=== PATIENT | male | born 1975 | race Caucasian/White ===

== ENCOUNTER 2017-06-11 18:11 | Observation (INO) | payer OTHER ==
[2017-06-11] MEDS ORDERED: Sodium Chloride 0.9% 2.5 ML Syringe FLUSH PRN (18:27)
[2017-06-11] MEDS ORDERED: Sodium Chloride 0.9% 10 ML Syringe FLUSH PRN (18:27)
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
[2017-06-11] MEDS ORDERED: Sodium Chloride 0.9% 1,000 ML IV ONE (18:40)
[2017-06-11 18:59] LABS: CHLORIDE,CL 105 mmol/L (98-110); SODIUM,NA 142 mmol/L (136-146)
[2017-06-11] MEDS ORDERED: Potassium Chloride 20 MEQ Tab.ER PO ONE (21:15)
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
[2017-06-12 08:07] LABS: CHLORIDE,CL 107 mmol/L (98-110); SODIUM,NA 144 mmol/L (136-146)
--- NOTE | 2017-06-12 09:04 | PCM.PN ---
Addendum entered and electronically signed by Gabbi Madera NP 06/12/17 16:13 : Will order ECHO and A1c as well. Will order PT to evaluate gait instability and ataxia. ST is not needed no swallowing or speech concerns observed, no facial droop. OT is not needed, able to perform ADLs without significant deficits. Original Note: - General Info Date of Service: 06/12/17 Admission Dx/Problem (Free Text): Admission Diagnosis/Problem Admission Diagnosis/Problem Paresthesia Subjective Update: Doing about the same this morning, still feels weak on the R side and like he has weakened fine motor control. Denies chest pain, SOB or headache. No further blurred vision or vision complaints. Functional Status: Reports: Pain Controlled, Tolerating Diet, Ambulating, Urinating - Review of Systems General: Reports: No Symptoms. Denies: Fever HEENT: Reports: No Symptoms. Denies: Ear Pain, Eye Pain, Headaches, Sore Throat , Visual Changes Pulmonary: Reports: No Symptoms. Denies: Shortness of Breath, Cough, Sputum Cardiovascular: Reports: No Symptoms. Denies: Chest Pain, Palpitations, Edema Gastrointestinal: Reports: No Symptoms. Denies: Abdominal Pain, Nausea, Vomiting Skin: Reports: No Symptoms Neurological: Reports: Weakness (perceived to R arm and leg), Gait Disturbance ( R leg feels heavy, like he is dragging ). Denies: Dizziness, Headache, Trouble Speaking, Change in Speech Psychiatric: Denies: Confusion - Patient Data Vitals - Most Recent: Last Vital Signs Temp 97.9 F 06/12/17 08:48 Pulse 68 06/12/17 08:48 Resp 12 06/12/17 08:48 BP 166/106 H 06/12/17 08:48 Pulse Ox 96 06/12/17 08:48 Weight - Most Recent: 110 kg I&O - Last 24 Hours: Intake & Output 06/11/17 06/12/17 06/12/17 22:59 06:59 14:59 Intake Total 1150 Output Total 700 Balance 450 Lab Results Last 24 Hours: Laboratory Results - last 24 hr 06/12/17 06/12/17 06/12/17 Range/Units 05:16 05:16 05:16 Sodium 144 (136-146) mmol/L Potassium 4.0 (3.5-5.1) mmol/L Chloride 107 (98-110) mmol/L Carbon Dioxide 25 (21-31) mmol/L BUN 16 (6.0-23.0) mg/dL Creatinine 0.8 (0.6-1.5) mg/dL Est Cr Clr Drug Dosing 125.47 mL/min Estimated GFR (MDRD) > 60.0 ml/min Glucose 98 (60-110) mg/dL Hemoglobin A1c 5.3 (0.0-6.0) % Calcium 9.2 (8.8-10.8) mg/dL Magnesium 1.7 (1.5-2.3) mEq/L Triglycerides 131 (10-190) mg/dL Cholesterol 206 (131-240) mg/dL LDL Cholesterol, Calc 155 (60-180) mg/dL VLDL Cholesterol 26 (5-55) mg/dL HDL Cholesterol 25 L (40-80) mg/dL Cholesterol/HDL Ratio 8.2 H (3.3-6.0) Med Orders - Current: Current Medications Aspirin (Aspirin) 325 mg PO DAILY BRIJESH Atorvastatin Calcium (Lipitor) 80 mg PO ONETIME ONE Stop: 06/12/17 08:49 Atorvastatin Calcium (Lipitor) 80 mg PO BEDTIME BRIJESH Sodium Chloride (Saline Flush) 10 ml FLUSH ASDIRECTED PRN PRN Reason: Keep Vein Open Last Admin: 06/11/17 19:30 Dose: 10 ml Sodium Chloride (Saline Flush) 2.5 ml FLUSH ASDIRECTED PRN PRN Reason: Keep Vein Open Last Admin: 06/11/17 19:29 Dose: 2.5 ml Discontinued Medications Sodium Chloride (Normal Saline) 1,000 mls @ 999 mls/hr IV STAT ONE Stop: 06/11/17 19:40 Last Admin: 06/11/17 19:26 Dose: 999 mls/hr Potassium Chloride (Klor-Con M20) 40 meq PO ONETIME ONE Stop: 06/11/17 21:16 Last Admin: 06/11/17 22:00 Dose: 40 meq - Exam General: Alert, Oriented, Cooperative, No Acute Distress Neck: Supple Lungs: Clear to Auscultation, Normal Respiratory Effort Cardiovascular: Regular Rate, Regular Rhythm, No Murmurs. No: Irregular Rhythm GI/Abdominal Exam: Normal Bowel Sounds, Soft, Non-Tender, No Organomegaly, No Distention, No Abnormal Bruit, No Mass, Pelvis Stable Extremities: Normal Inspection, Normal Range of Motion, Non-Tender, No Pedal Edema, Normal Capillary Refill Neurological: Normal Tone, Strength Equal Bilateral, Cranial Nerves Intact, Other (continues to complain of heaviness to R leg and arm. Leg feels heavy when ambulating, R arm strength is less as well, picks up kleenex box and states "this is seems very heavy to me, when I know it shouldn't feel this heavy.") Psy/Mental Status: Alert, Normal Affect, Normal Mood - Problem List & Annotations (1) Paresthesia SNOMED Code(s): 12067560 Code(s): R20.2 - PARESTHESIA OF SKIN Status: Acute Current Visit: Yes - Problem List Review Problem List Initiated/Reviewed/Updated: Yes - My Orders Last 24 Hours: My Active Orders 06/12/17 08:48 atorvaSTATin [Lipitor] 80 mg PO ONETIME ONE 06/12/17 08:54 Cervical Spine Comp w wo Cont [MR] Routine 06/12/17 09:00 Aspirin 325 mg PO DAILY 06/13/17 21:00 atorvaSTATin [Lipitor] 80 mg PO BEDTIME - Plan Plan:: 41 yo male admitted with right sided paresthesia. 1. R sided parasthesia: Brain MRI and Neck MRA ordered. Consulted Dr. Tena , she will see him this afternoon and requested a MRI of C spine as well. Telemetry has been SR with no irregular rhythm noted. Permissive HTN at this time until after MRI, BP 150-180/100s. Cholesterol elevated will give Atorvastatin 80 mg and ASA 325 daily. Continue to monitor. VTE prophylaxis: Lovenox. Dispo: 1-2 days
[2017-06-12] MEDS ORDERED: atorvaSTATin 40 MG Tab PO ONE (09:05)
[2017-06-12] MEDS: Aspirin 325 MG Tab PO SCH (09:23)
[2017-06-12] MEDS ORDERED: Gadobenate Dimeglumine 529 MG/ML 20 ML SDV IVPUSH STA (10:35)
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
--- NOTE | 2017-06-12 15:46 | MR ---
EXAMINATION: MRI of the brain with and without contrast. TECHNIQUE: Multiplanar and multisequence imaging of the brain without and following 20 cc of Multiha nce contrast. HISTORY: PA. FINDINGS: Cerebral hemispheres and the deep nuclei are without hemorrhage, mass, edema, enhancement or atrophy . There is a small left basal ganglia/periventricular area of diffusion restriction identified. Ther e are multiple periventricular and subcortical white matter FLAIR signal abnormalities. If you have t hese appear open ended, however are CSF intensity centrally. Otherwise no abnormal diffusion restrict ion. No focal abnormal enhancement. No extraaxial collections or hemorrhage. Ventricular system is of normal size and configuration witho ut hydrocephalus. A few tiny T2 bright signal foci are noted within the midbrain and cerebellum. Carotid basilar artery flow voids are intact. The otomastoid airspaces are clear. No internal audito ry canal or cerebellopontine angle masses or enhancement. The paranasal sinuses are clear. The glob es, optic nerves, orbital apices, optic chiasm, optic tracts, and visual cortices are unremarkable. There is a tiny 2 mm cyst within the pituitary. No meningeal enhancement. The craniocervical junction is unremarkable. No siderosis or evidence of vascular malformation. The calvarium is intact. IMPRESSION: 1. Small acute left basal ganglia/periventricular coronary infarct. 2. Multiple periventricular and subcortical white matter FLAIR intensities. These likely represent a combination of small vessel ischemic changes or lacunar infarcts, however given the appearance of a d emyelinating process such as MS is not excluded.
--- NOTE | 2017-06-12 15:48 | MR ---
EXAMINATION: MRI cervical spine with and without contrast HISTORY: Right arm weakness COMPARISON: None TECHNIQUE: Multiplanar and multisequence imaging obtained of the cervical spine before and following the administration of 20 mL of MultiHance. FINDINGS: The cervical spinal alignment appears grossly normal. The vertebral body heights appear wel l maintained. There is no abnormal bone marrow signal. The cervical spinal cord signal is normal. No abnormal enhancement is demonstrated. There is no significant disc bulge, spinal canal stenosis, or n eural foraminal stenosis identified. The paravertebral soft tissues appear grossly unremarkable. Plea se see the MRI brain report for intracranial findings. IMPRESSION: Grossly unremarkable MRI of the cervical spine with and without contrast.
[2017-06-12] MEDS ORDERED: Acetaminophen 325 MG Tab PO PRN (16:04)
--- NOTE | 2017-06-12 16:29 | MR ---
EXAMINATION: MRA neck without contrast HISTORY: TIA COMPARISON: None TECHNIQUE: Axial [id number] imaging obtained through the neck and skull base without contrast. M IP Reconstructions obtained. FINDINGS: The right vertebral artery is diminutive in size and not well characterized. The left verte bral artery is dominant. No significant atheromatous narrowing noted within the internal or common ca rotid arteries. The origins of the great vessels are not well characterized. The proximal middle and anterior cerebral arteries appear normal. The posterior cerebral arteries are grossly unremarkable. The anterior and posterior communicating arteries are normal. No aneurysm iden tified. IMPRESSION: 1. The right vertebral artery is diminutive not well characterized. 2. The carotid arteries appear normal.
--- NOTE | 2017-06-12 18:46 | CT ---
EXAM DATE: 06/11/17 PATIENT'S AGE: 41 Patient: CLARENCE ODELL Facility: [facility], [place], [place] Site . Site : 1975 Study: CT Head [id number]/4/2017 6:52:24 PM Ordering Physician: Doctor Zhou Final Report: INDICATION: Weakness. TECHNIQUE: Scanning of the head was performed without IV contrast material. Coronal and sagittal reconstructions were obtained. COMPARISON: None. FINDINGS: No acute hemorrhage or mass effect is demonstrated. Several punctate foci of decreased attenuation are demonstrated in both centrum semiovale, both nino radiata, the left internal capsule anterior limb and the right paramedian hannah. Differentiation between the preciado matter and white matter is preserved. The ventricles and other subarachnoid spaces are within normal limits. No calvarial abnormality is evident. The visualized paranasal and mastoid sinuses are clear. IMPRESSION: Nonspecific punctate foci of decreased attenuation in both centrum semiovale, both nino radiata, the left internal capsule anterior limb and the right paramedian hannah. Consider demyelination and microvascular ischemia. MRI is suggested. Please note that all CT scans at this facility use dose modulation, iterative reconstruction, and/or weight-based dosing when appropriate to reduce radiation dose to as low as reasonably achievable. Dictated by Louie Groves MD @ Jun 11 2017 7:16PM (Electronic Signature) Report Signed by Proxy. [facility]
--- NOTE | 2017-06-12 18:47 | CR ---
EXAM DATE: 06/11/17 PATIENT'S AGE: 41 Patient: CLARENCE ODELL Facility: [place], [place] Site . Site : 1975 Study: XRay Chest [id number]/4/2017 6:54:30 PM Ordering Physician: Doctor Zhou Final Report: INDICATION: weakness TECHNIQUE: Chest 1 view. Overlying body piercing degrades evaluation of the left clarence thorax. COMPARISON: None FINDINGS: Cardiovascular and mediastinum: Heart size and vasculature are normal in caliber and appearance. Mediastinum is within normal limits. Lungs and pleural space: No focal consolidation. No sign of pleural effusion. No pneumothorax. Bones and soft tissues: No significant findings. IMPRESSION: No acute cardiopulmonary disease. Dictated by Glenn Canseco MD @ 06/11/2017 7:20:23 PM Dictated by: Glenn Canseco MD @ 06/11/2017 19:20:32 (Electronic Signature) Report Signed by Proxy. [facility]
[2017-06-13] MEDS: Aspirin 325 MG Tab PO SCH (08:34)
[2017-06-13] MEDS ORDERED: Lisinopril 10 MG Tab PO SCH (11:15)
--- NOTE | 2017-06-13 11:21 | PCM.DCSUM1 ---
Discharge Summary - Hospital Course Brief History: 41 yo male who presents right sided paresthesia. The day before admission at around 5:00 pm while driving his four boyd he started to feel weird on his right side. He reports loosing fine motor control of his hand. He reported numbness of his hand, arms and legs. He feels as though his right arm and leg is heavy and he is draging his leg when he walks. He was evaluated in the ED and he had a normal neuro exam. He had a CT head which reported nonspecific punctate foci of decreased attenuation in both central semioval both nino radiata, the left internal capsule anterior lumb and the right paramedian hannah. - Discharge Data Discharge Date: 06/13/17 Discharge Disposition: Home, Self-Care 01 Condition: Good - Discharge Diagnosis/Problem(s) (1) CVA (cerebral vascular accident) SNOMED Code(s): 057607662 ICD Code: I63.9 - CEREBRAL INFARCTION, UNSPECIFIED Status: Acute Qualifiers: Laterality of affected vessel: left (2) Paresthesia SNOMED Code(s): 53184088 ICD Code: R20.2 - PARESTHESIA OF SKIN Status: Acute (3) HTN (hypertension) SNOMED Code(s): 22931923 ICD Code: I10 - ESSENTIAL (PRIMARY) HYPERTENSION Status: Acute (4) Dyslipidemia SNOMED Code(s): 683411807 ICD Code: E78.5 - HYPERLIPIDEMIA, UNSPECIFIED Status: Acute - Patient Summary/Data Consults: Consultations 06/12/17 12:35 Consult to Physician [CONS] Routine 06/12/17 16:12 Consult to Physical Therapy [PT Evaluation and Treatment] [CONS] Routine - Patient Instructions Diet: Heart Healthy Diet Activity: As Tolerated Showering/Bathing: May Shower Notify Provider of: Fever, Increased Pain, Swelling and Redness, Drainage, Nausea and/or Vomiting - Discharge Plan Prescriptions/Med Rec: Aspirin 325 mg PO DAILY #30 tablet atorvaSTATin [Lipitor] 80 mg PO BEDTIME #60 tablet Lisinopril [Prinivil] 10 mg PO DAILY #30 tablet Home Medications: Home Meds Aspirin 325 mg PO DAILY #30 tablet 06/13/17 [Rx] Lisinopril [Prinivil] 10 mg PO DAILY #30 tablet 06/13/17 [Rx] atorvaSTATin [Lipitor] 80 mg PO BEDTIME #60 tablet 06/13/17 [Rx] Patient Handouts: Stroke Prevention, [id number], Atorvastatin tablets, Lisinopril tablets, Aspirin, ASA oral tablets, Paresthesia, [id number] Referrals: Dipika Tena MD [Physician] - 06/26/17 9:00 am Nickolas Rodrigez MD [Physician] - 06/26/17 11:30 am - Discharge Summary/Plan Comment DC Time >30 min.: No Discharge Summary/Plan Comment: Discharge Diagnoses: CVA with residual effects to R side HTN Dyslipidemia Gino was admitted and evaluated for possibility of CVA. Dr. Tena was consulted and recommened MRI brain and MRA neck along with cervical spine MRI. Cervical spine MRI, unremarkable. MRA neck, revealed "right vertebral artery is diminutive with L vertebral artery dominant, carotid arteries appear normal." MRI brain revealed "small acute left basal ganglia/periventricular infarct, multiple periventricular and subcortical white matter FLAIR intensities, which could represent small vessel ischemic changes or lacunar infarcts, however given the appearance of a demyelinating process such as MS is not excluded." Likey acute CVA to L basal ganglia. ASA, atorvastatin ordered. LDL 155 HDL 25, Total 206 A1c 5.2. ECHO pending. Coagulopathy labs pending as well due to young age. Today, Lisinopril 10mg ordered for HTN. PT was consulted for gait, he will has outpatient PT follow as well. ST was not ordered since no deficits such as dysarthia or dysphagia noted, and OT also not ordered, because patient is able to completed ADLs which out difficulty. He and his updated and spoke with Dr. Tena, will arrange appointment with Dr. Tena in 1-2 weeks for follow up as well as arrange PCP care here in [place], per patient request. He will be sent home with ASA 325 daily, Atorvastatin 80 mg daily, and Lisinopril 10 mg daily. He is to continue to stay away from tobacco products, and maintain Heart Healthy diet. He or had no further questions, he is to return to ED or clinic if concerns should arise. - General Info Date of Service: 06/13/17 Admission Dx/Problem (Free Text: Admission Diagnosis/Problem Admission Diagnosis/Problem CVA Subjective Update: Doing well this morning, has no complaints of pain today. Parathesia to R hand continue and heaviness to R leg as well. NO chest pain or SOB. Functional Status: Reports: Pain Controlled, Tolerating Diet, Ambulating, Urinating - Review of Systems General: Reports: No Symptoms. Denies: Fever HEENT: Reports: No Symptoms. Denies: Contact Lenses, Dysphasia, Headaches, Visual Changes Pulmonary: Reports: No Symptoms. Denies: Shortness of Breath, Cough, Sputum Cardiovascular: Reports: No Symptoms. Denies: Chest Pain, Dyspnea on Exertion, Lightheadedness Gastrointestinal: Reports: No Symptoms. Denies: Abdominal Pain, Nausea, Vomiting Genitourinary: Reports: No Symptoms. Denies: Dysuria, Frequency, Burning Neurological: Reports: Numbness, Paresthesia (R arm and leg), Tingling. Denies : Trouble Speaking Psychiatric: Reports: No Symptoms - Patient Data Vitals - Most Recent: Last Vital Signs Temp 98 F 06/13/17 08:00 Pulse 68 06/13/17 08:00 Resp 16 06/13/17 08:00 BP 180/99 H 06/13/17 08:00 Pulse Ox 98 06/13/17 08:00 Weight - Most Recent: 110 kg I&O - Last 24 hours: Intake & Output 06/12/17 06/13/17 06/13/17 22:59 06:59 14:59 Intake Total 825 700 Output Total 1090 1300 Balance -265 -600 Lab Results - Last 24 hrs: Laboratory Results - last 24 hr 06/12/17 06/13/17 Range/Units 05:16 05:00 INR 0.92 (0.86-1.11) APTT 25.3 (18.6-31.3) SEC Fibrinogen 260 (215-411) mg/dL Hemoglobin A1c 5.2 (0.0-6.0) % Med Orders - Current: Current Medications Acetaminophen (Tylenol) 650 mg PO Q6H PRN PRN Reason: Pain Last Admin: 06/12/17 17:19 Dose: 650 mg Aspirin (Aspirin) 325 mg PO DAILY BRIJESH Last Admin: 06/13/17 08:34 Dose: 325 mg Atorvastatin Calcium (Lipitor) 80 mg PO BEDTIME BRIJESH Lisinopril (Prinivil) 10 mg PO DAILY BRIJESH Sodium Chloride (Saline Flush) 10 ml FLUSH ASDIRECTED PRN PRN Reason: Keep Vein Open Last Admin: 06/11/17 19:30 Dose: 10 ml Sodium Chloride (Saline Flush) 2.5 ml FLUSH ASDIRECTED PRN PRN Reason: Keep Vein Open Last Admin: 06/11/17 19:29 Dose: 2.5 ml Discontinued Medications Atorvastatin Calcium (Lipitor) 80 mg PO ONETIME ONE Stop: 06/12/17 09:06 Last Admin: 06/12/17 09:23 Dose: 80 mg Gadobenate Dimeglumine (Multihance) 20 ml IVPUSH ONETIME STA Stop: 06/12/17 10:36 Last Admin: 06/12/17 10:36 Dose: 20 ml Sodium Chloride (Normal Saline) 1,000 mls @ 999 mls/hr IV STAT ONE Stop: 06/11/17 19:40 Last Admin: 06/11/17 19:26 Dose: 999 mls/hr Potassium Chloride (Klor-Con M20) 40 meq PO ONETIME ONE Stop: 06/11/17 21:16 Last Admin: 06/11/17 22:00 Dose: 40 meq - Exam General: Reports: Alert, Oriented, Cooperative, No Acute Distress HEENT: Reports: Pupils Equal, Pupils Reactive, EOMI, Mucous Membr. Moist/[place]: Reports: Supple Lungs: Reports: Clear to Auscultation Cardiovascular: Reports: Regular Rate, Regular Rhythm GI/Abdominal Exam: Normal Bowel Sounds, Soft, Non-Tender, No Organomegaly, No Distention, No Abnormal Bruit, No Mass, Pelvis Stable Extremities: Normal Inspection, Normal Range of Motion, Non-Tender, No Pedal Edema, Normal Capillary Refill Skin: Reports: Warm, Dry, Intact Neurological: Reports: Strength Equal Bilateral, Reflexes Equal Bilateral, Other (slight atxia noted finger to nose, and slight dragging to R leg with ambulationg, appears heavy to move) Psy/Mental Status: Reports: Alert, Normal Affect, Normal Mood *Q Meaningful Use (DIS) - VTE *Q VTE Criteria *Q: - Stroke *Q Stroke Criteria *Q: - AMI *Q AMI Criteria *Q:
[2017-06-13 12:15] VITALS: BP 127/86
--- NOTE | 2017-06-13 14:48 | PCM.CONSN ---
- General Info Date of Service: 06/13/17 Admission Dx/Problem (Free Text): Admission Diagnosis/Problem Admission Diagnosis/Problem CVA Subjective Update: Symptoms are improved. Right leg isn't quite back to 100% - Review of Systems General: Reports: Weakness HEENT: Reports: No Symptoms Cardiovascular: Reports: No Symptoms Gastrointestinal: Reports: No Symptoms Neurological: Reports: Paresthesia, Trouble Speaking, Difficulty Walking - Patient Data Vitals - Most Recent: Last Vital Signs Temp 36.6 C 06/13/17 08:00 Pulse 68 06/13/17 08:00 Resp 16 06/13/17 08:00 BP 127/86 06/13/17 12:14 Pulse Ox 98 06/13/17 08:00 Weight - Most Recent: 110 kg I&O - Last 24 Hours: Intake & Output 06/12/17 06/13/17 06/13/17 22:59 06:59 14:59 Intake Total 825 700 Output Total 1090 1300 Balance -265 -600 Lab Results Last 24 Hours: Laboratory Results - last 24 hr 06/13/17 06/13/17 Range/Units 05:00 05:00 ESR 3 (0-14) mm/hr INR 0.92 (0.86-1.11) APTT 25.3 (18.6-31.3) SEC Fibrinogen 260 (215-411) mg/dL Med Orders - Current: Current Medications Discontinued Medications Acetaminophen (Tylenol) 650 mg PO Q6H PRN PRN Reason: Pain Last Admin: 06/12/17 17:19 Dose: 650 mg Aspirin (Aspirin) 325 mg PO DAILY BRIJESH Last Admin: 06/13/17 08:34 Dose: 325 mg Atorvastatin Calcium (Lipitor) 80 mg PO ONETIME ONE Stop: 06/12/17 09:06 Last Admin: 06/12/17 09:23 Dose: 80 mg Atorvastatin Calcium (Lipitor) 80 mg PO BEDTIME BRIJESH Gadobenate Dimeglumine (Multihance) 20 ml IVPUSH ONETIME STA Stop: 06/12/17 10:36 Last Admin: 06/12/17 10:36 Dose: 20 ml Sodium Chloride (Normal Saline) 1,000 mls @ 999 mls/hr IV STAT ONE Stop: 06/11/17 19:40 Last Admin: 06/11/17 19:26 Dose: 999 mls/hr Lisinopril (Prinivil) 10 mg PO DAILY BRIJESH Last Admin: 06/13/17 12:14 Dose: 10 mg Potassium Chloride (Klor-Con M20) 40 meq PO ONETIME ONE Stop: 06/11/17 21:16 Last Admin: 06/11/17 22:00 Dose: 40 meq Sodium Chloride (Saline Flush) 10 ml FLUSH ASDIRECTED PRN PRN Reason: Keep Vein Open Last Admin: 06/11/17 19:30 Dose: 10 ml Sodium Chloride (Saline Flush) 2.5 ml FLUSH ASDIRECTED PRN PRN Reason: Keep Vein Open Last Admin: 06/11/17 19:29 Dose: 2.5 ml Comments:: Lipid 06/11/2017 LDL 155, chol 206, HDL 25 MRI brain June 12, 2017: Small acute left infarct and periventricular white matter. T2 flair hyperintensity/T1 hypointense foci were seen predominantly in the deep white matter, likely small vessel ischemic changes and lacunar infarcts. MRI cervical spine demonstrated no lesions in the cord. MR angiogram neck demonstrated diminutive right vertebral artery, otherwise unremarkable. Echocardiogram is pending. No events noted on Holter - Exam Physical Findings Comments:: Constitutional: No acute distress Psychiatric: Mood/Affect: normal/appropriate Neurological: Mental Status: General: Normal activity, good hygiene, appropriate appearance. Level of consciousness: Awake, alert. Concentration/Attention Span: Normal. Fund of Knowledge/memory: Adequate recent and remote recall. Language: Fluent and articulate without evidence of aphasia or dysarthria. Thought Content: Normal. Insight/Judgement: Normal. Cranial Nerves: Pupils equally round and reactive to light. Visual medellin full to confrontation. Gaze conjugate, EOMI. Sensation intact and symmetric to light touch. Facial strength is full and symmetric. Palate elevates symmetrically. Normal shrug bilaterally. Tongue protrudes midline Motor: Normal tone in all groups. No drift. Power is 5/5 throughout proximal and distal muscles. Sensation: Sensation is intact to pinprick,. Coordination: Finger to nose, heel to bourgeois and rapid alternating movements are intact. Gait: Cautious casual gait. Cardiovascular: RRR, no obvious murmur Respiratory: clear lungs Consult PN Assessment/Plan (1) CVA (cerebral vascular accident) SNOMED Code(s): 204798524 Code(s): I63.9 - CEREBRAL INFARCTION, UNSPECIFIED Qualifiers: Laterality of affected vessel: left Assessment:: 41-year-old man admitted with right-sided deficits found to have restricted diffusion consistent with acute stroke as well as multiple older lesions likely lacunar infarcts, less likely demyelinating disease given lack of enhancement of acute lesion. Of note, he has a strong family history of vascular disease at young age. Vasculitis less likely given lack of headache and normal ESR. -continue statin, ASA -hypercoagulable work up pending -f/u with me 1-2 weeks -discuss 30 day front desk monitor at follow up Problem List Initiated/Reviewed/Updated: Yes
[2017-06-13] MEDS ORDERED: atorvaSTATin 40 MG Tab PO SCH (21:00)
--- NOTE | 2017-06-14 18:29 | ECHO ---
The echocardiogram report can be seen in this patient's EMR (electronic medical records) in the Reports section. The report has also been scanned into PACS and can be seen there. RITCHIE
== END 2017-06-13 12:20 | disposition home or self-care (01) ==
LOC: MW.ED 18:11 → MW.MS 19:34 → UNDODISOB 06-13 12:20
PROVIDERS: ADMIT Internal Medicine; ATTEND Internal Medicine
DX: I69.398 Other sequelae of cerebral infarction (principal); I63.9 Cerebral infarction, unspecified; R20.2 Paresthesia of skin; I10 Essential (primary) hypertension; E78.5 Hyperlipidemia, unspecified; R27.0 Ataxia, unspecified; Z87.442 Personal history of urinary calculi; Z87.891 Personal history of nicotine dependence; Z98.890 Other specified postprocedural states
CPT/HCPCS: 36415; 70450; 70547; 70553; 71010; 72156; 80048; 80053; 80061; 81001; 81240; 81241; 83036; 83090; 83735; 84484; 85025; 85240; 85301; 85303; 85306; 85384; 85610; 85613; 85652; 85730; 86147; 93005; 93306; 96360; 97161; 99285; A9270; A9577; G0378; J7040; 99283

== ENCOUNTER 2021-10-11 18:52 | Inpatient (IN) | payer OTHER ==
[2021-10-11] MEDS ORDERED: Sodium Chloride 0.9% 2.5 ML Syringe FLUSH PRN (19:24)
[2021-10-11] MEDS ORDERED: Sodium Chloride 0.9% 10 ML Syringe FLUSH PRN (19:24)
--- NOTE | 2021-10-11 19:44 | EDM.PDOC ---
ED HPI GENERAL MEDICAL PROBLEM - General Chief Complaint: Respiratory Problem Stated Complaint: COVID POS, CAN'T BREATH, KEEPS PASSING OUT Time Seen by Provider: 10/11/21 19:18 - History of Present Illness INITIAL COMMENTS - FREE TEXT/NARRATIVE: HISTORY AND PHYSICAL: History of present illness: This is a 46-year-old gentleman with a history significant for hypertension, hyperlipidemia, stroke in the past, vapes, who presents ER today secondary to shortness of breath that started 1 to 2 days ago. Patient reports that approximately 10 days ago he started having cough and congestion. He reports that his did a home Covid test on him which was positive. Patient reports over the last 10 days has been feeling worse culminating in last couple days with worsening shortness of breath. Patient reports occasional tactile fevers. Patient denies any vomiting or diarrhea but has been feeling nauseous. Patient reports nonproductive cough. Patient denies any abdominal pain or chest pain. Patient has any calf tenderness or swelling. Patient reports he has not had his Covid vaccinations. Patient denies any pain in his chest, diaphoresis, pain rating down his arms or other back. Review of systems: As per history of present illness and below otherwise all systems reviewed and negative. Past medical history: As per history of present illness and as reviewed below otherwise noncontributory. Surgical history: As per history of present illness and as reviewed below otherwise noncontributory. Social history: No reported history of drug abuse. Family history: As per history of present illness and as reviewed below otherwise noncontributory. Physical exam: This patient was seen and evaluated during the 2019 SARS-CoV-2 novel coronavirus pandemic period. Community viral transmission is ongoing at time of this encounter and the emergency department is operating under pandemic response procedures. Constitutional: Patient is oriented to person, place, and time. Appears well- developed and well-nourished. No distress. HEENT: Moist mucous membranes Head: Normocephalic and atraumatic Eyes: Right eye exhibits no discharge. Left eye exhibits no discharge. No scleral icterus Neck: Normal range of motion. No tracheal deviation present. Cardiovascular: Normal rate and regular rhythm. Pulmonary: Effort normal, no respiratory distress. Coarse breath sounds bilaterally. Resting comfortably on nasal cannula O2 without tachypnea. Abdominal: No distention Musculoskeletal: Normal range of motion Neurologic: Alert and oriented to person, place and time. Skin: [place], warm and dry. Psychiatric: Normal mood and affect. Behavior is normal. Judgment and thought content normal. Nursing note and vital signs have been reviewed Diagnostics: EKG October 11, 2021 7:21 PM EKG: As interpreted by ER physician: [facility]: Nonspecific ST-T wave abnormalities Normal axis No evidence of ST elevation NM Normal sinus rhythm heart rate of 80 Chest Xray: Normal cardiac silhouette Increase interstitial markings bilaterally consistent with Covid pneumonia No PTX No evidence of acute bony fracture. As interpreted by ER MD: [employer]: Remdesivir/Decadron Assessment and plan: 46-year-old gentleman with recent home Covid test that is positive presents ER today with worsening shortness of breath and hypoxia in the ED. patient was noted to have a pulse ox of 85% on initial presentation in the ER. Patient's vital signs are otherwise unremarkable. Patient is not vaccinated against Covid. Patient is high risk and is pretension hyperlipidemia, history of strokes, BMI of greater than 36. Patient will have a CBC, CMP, troponin, CTA of his chest, chest x-ray, EKG performed. Patient's Covid test is positive here in the ED. Patient's labs are unremarkable. I will obtain a CTA of his chest to rule out any other pathology that might be coexisting. Patient will get started on remdesivir down the ED 200 mg. Patient be given Decadron. I have discussed the case with Dr. Fortune who is agreed to accept patient for inpatient care. Definitive disposition and diagnosis as appropriate pending reevaluation and review of above. - Related Data Allergies Allergy/AdvReac Type Severity Reaction Status Date / Time No Known Allergies Allergy Verified 10/11/21 19:13 Home Meds: Home Meds Aspirin 325 mg PO DAILY #30 tablet 06/13/17 [Rx] Lisinopril [Prinivil] 10 mg PO DAILY #30 tablet 06/13/17 [Rx] atorvaSTATin [Lipitor] 80 mg PO BEDTIME #60 tablet 06/13/17 [Rx] Past Medical History - Past Health History Medical/Surgical History: Denies Medical/Surgical History HEENT History: Reports: Impaired Vision Genitourinary History: Reports: Renal Calculus Musculoskeletal History: Reports: Other (See Below) Endocrine/Metabolic History: Reports: Obesity/BMI 30+ - Infectious Disease History Infectious Disease History: Reports: Chicken Pox, Influenza - Past Surgical History HEENT Surgical History: Reports: Other (See Below) Other HEENT Surgeries/Procedures: tooth extraction Male Surgical History: Reports: None Endocrine Surgical History: Reports: None Musculoskeletal Surgical History: Reports: Arthroscopic Procedure, Other (See Below) Other Musculoskeletal Surgeries/Procedures:: right wrist surgery seconadry to fracture Social & Family History - Family History Family Medical History: No Pertinent Family History Cardiac: Reports: Hypertension, Stent Endocrine/Metabolic: Reports: Diabetes, type II - Tobacco Use Tobacco Use Status *Q: Former Tobacco User Used Tobacco, but Quit: Yes Month/Year Tobacco Last Used: 10/2019 - Caffeine Use Caffeine Use: Reports: Energy Drinks - Recreational Drug Use Recreational Drug Use: No ED ROS GENERAL - Review of Systems Review Of Systems: See Below ED EXAM, GENERAL - Physical Exam Exam: See Below Course - Vital Signs Last Recorded V/S: Last Vital Signs Temp 97 F 10/11/21 19:14 Pulse 77 10/11/21 20:28 Resp 18 10/11/21 20:04 BP 114/58 L 10/11/21 20:28 Pulse Ox 95 10/11/21 20:04 - Orders/Labs/Meds Orders: Active Orders 24 hr Category Date Time Status Ang Chest [CT] Stat Exams 10/11/21 19:26 Ordered CULTURE BLOOD [BC] Stat Lab 10/11/21 19:36 Received CULTURE BLOOD [BC] Stat Lab 10/11/21 19:41 Received Sodium Chloride 0.9% [Saline Flush] Med 10/11/21 19:24 Active 10 ml FLUSH ASDIRECTED PRN Sodium Chloride 0.9% [Saline Flush] Med 10/11/21 19:24 Active 2.5 ml FLUSH ASDIRECTED PRN Blood Culture x2 Reflex Set [OM.PC] Stat Oth 10/11/21 19:25 Ordered Saline Lock Insert [OM.PC] Stat Oth 10/11/21 19:25 Ordered Medication Orders Sodium Chloride (Sodium Chloride 0.9% 10 Ml Syringe) 10 ml FLUSH ASDIRECTED PRN PRN Reason: Keep Vein Open Last Admin: 10/11/21 19:43 Dose: 10 ml Documented by: JEAN Sodium Chloride (Sodium Chloride 0.9% 2.5 Ml Syringe) 2.5 ml FLUSH ASDIRECTED PRN PRN Reason: Keep Vein Open Last Admin: 10/11/21 19:44 Dose: 2.5 ml Documented by: JEAN Labs: Laboratory Tests 10/11/21 10/11/21 10/11/21 Range/Units 19:07 19:20 19:20 WBC 7.43 (4.0-11.0) K/uL RBC 4.88 (4.50-5.90) M/uL Hgb 15.1 (13.0-17.0) g/dL Hct 42.7 (38.0-50.0) % MCV 87.5 (80.0-98.0) fL MCH 30.9 (27.0-32.0) pg MCHC 35.4 (31.0-37.0) g/dL RDW Std Deviation 43.1 (28.0-62.0) fl RDW Coeff of Amanda 14 (11.0-15.0) % Plt Count 213 (150-400) K/uL MPV 9.90 (7.40-12.00) fL Neut % (Auto) 84.5 H (48.0-80.0) % Lymph % (Auto) 7.3 L (16.0-40.0) % Bell % (Auto) 7.7 (0.0-15.0) % Eos % (Auto) 0.4 (0.0-7.0) % Baso % (Auto) 0.1 (0.0-1.5) % Neut # (Auto) 6.3 H (1.4-5.7) K/uL Lymph # (Auto) 0.5 L (0.6-2.4) K/uL Bell # (Auto) 0.6 (0.0-0.8) K/uL Eos # (Auto) 0.0 (0.0-0.7) K/uL Baso # (Auto) 0.0 (0.0-0.1) K/uL Nucleated RBC % 0.0 /100WBC Nucleated RBCs # 0 K/uL Sodium 135 L (136-148) mmol/L Potassium 3.8 (3.5-5.1) mmol/L Chloride 100 (98-107) mmol/L Carbon Dioxide 27.4 (21.0-32.0) mmol/L BUN 21 H (7.0-18.0) mg/dL Creatinine 1.1 (0.8-1.3) mg/dL Est Cr Clr Drug Dosing 83.91 mL/min Estimated GFR (MDRD) > 60.0 ml/min Glucose 106 (74-106) mg/dL Lactic Acid (0.4-2.0) mmol/L Calcium 8.1 L (8.5-10.1) mg/dL Total Bilirubin 1.3 H (0.2-1.0) mg/dL AST 189 H (15-37) IU/L ALT 210 H (14-63) IU/L Alkaline Phosphatase 108 (46-116) U/L B-Natriuretic Peptide (<100) PG/ML Total Protein 6.4 (6.4-8.2) g/dL Albumin 2.8 L (3.4-5.0) g/dL Globulin 3.6 (2.6-4.0) g/dL Albumin/Globulin Ratio 0.8 L (0.9-1.6) Urine Color Urine Appearance Urine pH (5.0-8.0) Ur Specific [place] (1.001-1.035) Urine Protein (NEGATIVE) mg/dL Urine Glucose (UA) (NEGATIVE) mg/dL Urine Ketones (NEGATIVE) mg/dL Urine Occult Blood (NEGATIVE) Urine Nitrite (NEGATIVE) Urine Bilirubin (NEGATIVE) Urine Urobilinogen (<2.0) EU/dL Ur Leukocyte Esterase (NEGATIVE) Influenza Type A RNA NEGATIVE (NEGATIVE) Influenza Type B RNA NEGATIVE (NEGATIVE) SARS-CoV-2 RNA (ROGER) POSITIVE H (NEGATIVE) 10/11/21 10/11/21 10/11/21 Range/Units 19:20 19:41 20:13 WBC (4.0-11.0) K/uL RBC (4.50-5.90) M/uL Hgb (13.0-17.0) g/dL Hct (38.0-50.0) % MCV (80.0-98.0) fL MCH (27.0-32.0) pg MCHC (31.0-37.0) g/dL RDW Std Deviation (28.0-62.0) fl RDW Coeff of Amanda (11.0-15.0) % Plt Count (150-400) K/uL MPV (7.40-12.00) fL Neut % (Auto) (48.0-80.0) % Lymph % (Auto) (16.0-40.0) % Bell % (Auto) (0.0-15.0) % Eos % (Auto) (0.0-7.0) % Baso % (Auto) (0.0-1.5) % Neut # (Auto) (1.4-5.7) K/uL Lymph # (Auto) (0.6-2.4) K/uL Bell # (Auto) (0.0-0.8) K/uL Eos # (Auto) (0.0-0.7) K/uL Baso # (Auto) (0.0-0.1) K/uL Nucleated RBC % /100WBC Nucleated RBCs # K/uL Sodium (136-148) mmol/L Potassium (3.5-5.1) mmol/L Chloride (98-107) mmol/L Carbon Dioxide (21.0-32.0) mmol/L BUN (7.0-18.0) mg/dL Creatinine (0.8-1.3) mg/dL Est Cr Clr Drug Dosing mL/min Estimated GFR (MDRD) ml/min Glucose (74-106) mg/dL Lactic Acid 1.6 (0.4-2.0) mmol/L Calcium (8.5-10.1) mg/dL Total Bilirubin (0.2-1.0) mg/dL AST (15-37) IU/L ALT (14-63) IU/L Alkaline Phosphatase (46-116) U/L B-Natriuretic Peptide 10 (<100) PG/ML Total Protein (6.4-8.2) g/dL Albumin (3.4-5.0) g/dL Globulin (2.6-4.0) g/dL Albumin/Globulin Ratio (0.9-1.6) Urine Color YELLOW Urine Appearance CLEAR Urine pH 6.0 (5.0-8.0) Ur Specific [place] 1.015 (1.001-1.035) Urine Protein NEGATIVE (NEGATIVE) mg/dL Urine Glucose (UA) NEGATIVE (NEGATIVE) mg/dL Urine Ketones NEGATIVE (NEGATIVE) mg/dL Urine Occult Blood NEGATIVE (NEGATIVE) Urine Nitrite NEGATIVE (NEGATIVE) Urine Bilirubin NEGATIVE (NEGATIVE) Urine Urobilinogen 0.2 (<2.0) EU/dL Ur Leukocyte Esterase NEGATIVE (NEGATIVE) Influenza Type A RNA (NEGATIVE) Influenza Type B RNA (NEGATIVE) SARS-CoV-2 RNA (ROGER) (NEGATIVE) Meds: Medications Generic Name Dose Route Start Last Admin Trade Name Freq PRN Reason Stop Dose Admin Sodium Chloride 10 ml 10/11/21 19:24 10/11/21 19:43 Sodium Chloride 0.9% 10 Ml Syringe FLUSH 10 ml ASDIRECTED PRN Administration Keep Vein Open Sodium Chloride 2.5 ml 10/11/21 19:24 10/11/21 19:44 Sodium Chloride 0.9% 2.5 Ml Syringe FLUSH 2.5 ml ASDIRECTED PRN Administration Keep Vein Open Discontinued Medications Generic Name Dose Route Start Last Admin Trade Name Freq PRN Reason Stop Dose Admin Remdesivir 200 mg/ Sodium 250 mls @ 250 mls/hr 10/11/21 20:25 Chloride IV 10/11/21 20:26 ONETIME ONE Departure - Departure Time of Disposition: 20:33 Disposition: Admitted As Inpatient 66 Condition: Fair Clinical Impression: Lab test positive for detection of COVID-19 virus, Hypoxia, COVID-19 virus infection - Discharge Information Forms: ED Department Discharge Sepsis Event Note (ED) - Evaluation Sepsis Screening Result: No Definite Risk - Focused Exam Vital Signs: Vital Signs Temp Pulse Resp BP Pulse Ox 10/11/21 20:28 77 114/58 L 10/11/21 20:04 92 18 115/76 95 10/11/21 19:14 97 F 93 20 109/64 85 L - My Orders Last 24 Hours: My Active Orders 10/11/21 19:24 Sodium Chloride 0.9% [Saline Flush] 10 ml FLUSH ASDIRECTED PRN Sodium Chloride 0.9% [Saline Flush] 2.5 ml FLUSH ASDIRECTED PRN 10/11/21 19:25 Blood Culture x2 Reflex Set [OM.PC] Stat Saline Lock Insert [OM.PC] Stat 10/11/21 19:26 Ang Chest [CT] Stat 10/11/21 19:36 CULTURE BLOOD [BC] Stat 10/11/21 19:41 CULTURE BLOOD [BC] Stat - Assessment/Plan Last 24 Hours: My Active Orders 10/11/21 19:24 Sodium Chloride 0.9% [Saline Flush] 10 ml FLUSH ASDIRECTED PRN Sodium Chloride 0.9% [Saline Flush] 2.5 ml FLUSH ASDIRECTED PRN 10/11/21 19:25 Blood Culture x2 Reflex Set [OM.PC] Stat Saline Lock Insert [OM.PC] Stat 10/11/21 19:26 Ang Chest [CT] Stat 10/11/21 19:36 CULTURE BLOOD [BC] Stat 10/11/21 19:41 CULTURE BLOOD [BC] Stat
--- NOTE | 2021-10-11 19:56 | CR ---
INDICATION: Cough, shortness of breath TECHNIQUE: Chest radiograph 1 view COMPARISON: 06/11/2017 FINDINGS: The sensitivity and specificity of the exam are moderately limited by the patient`s body habitus. Mediastinum: The mediastinum is normal in appearance. The heart silhouette is normal in size and morphology. Lung: Small lung volumes with peripheral patchy ground-glass and airspace densities are noted. No sign of pleural effusion seen. No pneumothorax is identified. Bone and Soft tissue: Unremarkable for age. IMPRESSION: 1. Small lung volumes with peripheral patchy ground-glass and airspace densities are noted. Findings likely due to COVID-19 infection. Dictated by Jeffery Arroyo MD @ 10/11/2021 7:56:05 PM Dictated by: Jeffery Arroyo MD @ 10/11/2021 19:56:08 (Electronically Signed)
[2021-10-11 19:57] LABS: BLOOD UREA NITROGEN,BUN 21 mg/dL (7.0-18.0); CARBON DIOXIDE,CO2 27.4 mmol/L (21.0-32.0); CHLORIDE,CL 100 mmol/L (98-107); GLUCOSE RANDOM 106 mg/dL (74-106); POTASSIUM,K 3.8 mmol/L (3.5-5.1); SODIUM,NA 135 mmol/L (136-148)
[2021-10-11 20:12] LABS: CORONAVIRUS COVID-19 NAA POSITIVE (NEGATIVE); INFLUENZA A NAA NEGATIVE (NEGATIVE); INFLUENZA B NAA NEGATIVE (NEGATIVE)
[2021-10-11] MEDS ORDERED: REMDESIVIR 200 MG in Sodium Chloride 0.9% 250 ML IV ONE (20:25)
[2021-10-11] MEDS ORDERED: Dexamethasone 10 MG/ML SDV IVPUSH ONE (20:32)
[2021-10-11] MEDS ORDERED: Iopamidol 755 MG/ML 500 ML Multipack Bottle IVPUSH ONE (20:47)
--- NOTE | 2021-10-11 21:26 | CT ---
INDICATION: Cough, shortness of breath, cough TECHNIQUE: Contrast enhanced axial CT imaging through the chest, optimized for assessment of the pulmonary arterial tree. 100 mL Isovue 370 contrast agent was administered intravenously. Sagittal and coronal reconstructions are provided. COMPARISON: None FINDINGS: There is adequate opacification of the pulmonary arterial tree without evidence of thromboembolism. The main pulmonary artery is nonenlarged. The heart is normal in size. There is no pericardial effusion. Coronary artery calcification is present. The thoracic aorta is normal in caliber. There is no mediastinal lymphadenopathy. There is bilateral ground-glass airspace disease predominantly involving the dependent lungs and lung bases. There is no pleural effusion or pneumothorax. The thoracic osseous structures are unremarkable. No significant abnormality is demonstrated in the visualized upper abdomen. A renal cortical cyst is partially visualized on the right. IMPRESSION: 1. Bilateral ground-glass airspace disease, compatible with COVID-19 pneumonia. 2. No evidence of pulmonary embolism. 3. Coronary artery disease present. Please note that all CT scans at this facility use dose modulation, iterative reconstruction, and/or weight-based dosing when appropriate to reduce radiation dose to as low as reasonably achievable. Dictated by Esther Dao MD @ 10/11/2021 9:26:09 PM (Electronically Signed)
[2021-10-12 07:29] LABS: BLOOD UREA NITROGEN,BUN 19 mg/dL (7.0-18.0); CARBON DIOXIDE,CO2 27.5 mmol/L (21.0-32.0); CHLORIDE,CL 103 mmol/L (98-107); GLUCOSE RANDOM 138 mg/dL (74-106); POTASSIUM,K 4.8 mmol/L (3.5-5.1); SODIUM,NA 138 mmol/L (136-148)
[2021-10-12] MEDS ORDERED: Albuterol/Ipratropium 4 GM Inhalation Spray INH PRN (08:19)
--- NOTE | 2021-10-12 08:24 | PCM.HP.2 ---
H&P History of Present Illness - General Date of Service: 10/12/21 Admit Problem/Dx: Admission Diagnosis/Problem Admission Diagnosis/Problem Respiratory failure with hypoxia Source of Information: Patient History Limitations: Reports: No Limitations - History of Present Illness Initial Comments - Free Text/Narative: This 46-year-old male with past medical history of HTN, HLD and CVA presented to the ER with complaints of shortness of breath that started 1 to 2 days ago. He reports that he ultimately became sick approximately 10 days with cough and congestion. Reports his did an at home Covid test on him which was positive. He reports he started feeling worse the last couple days with worsening shortness of breath. Reports nonproductive cough. Reports subjective fevers. Denies any vomiting nausea or diarrhea. No abdominal pain. Denies any urinary concerns. He denies any chest pain diaphoresis or radiating pain to his arms or back. Denies alcohol use, no recreational drug use and no tobacco use, but does vape. reports he is not vaccinated against COVID or influenza. In the ER he was noted to be satting 85% on room air. He was placed on 6 L of o xygen and sats improved to 90s. Covid test positive. CTA of the chest obtained which reveals no cardiomegaly. Bilateral groundglass opacities in dependent lung bases no pleural effusion or pneumothorax. No evidence of thromboembolism. Mild transaminitis noted with bilirubin 1.3 AST 189 ALT 210. Urine negative. Cultures pending. He received 10 mg IV dexamethasone and remdesivir 200 mg in the ER. Patient admitted for acute hypoxic respiratory failure and COVID-19 pneumonia. - Related Data Allergies/Adverse Reactions: Allergies Allergy/AdvReac Type Severity Reaction Status Date / Time No Known Allergies Allergy Verified 10/12/21 00:31 Home Medications: Home Meds Aspirin 325 mg PO DAILY #30 tablet 06/13/17 [Rx] Losartan/Hydrochlorothiazide [Losartan-HCTZ 50-12.5 MG] 62.5 each PO WITHBREAKFAST 10/11/21 [History] atorvaSTATin [Lipitor] 80 mg PO WITHBREAKFAST 10/11/21 [History] Cholecalciferol (Vitamin D3) [Vitamin D] 5,000 unit PO DAILY 10/12/21 [History] Ibuprofen 600 mg PO Q6H PRN 10/12/21 [History] Potassium Chloride [Klor-Con 10] 10 meq PO DAILY 10/12/21 [History] Tadalafil [Cialis] 10 mg PO . NEEDED PRN 10/12/21 [History] Zinc 50 mg PO DAILY 10/12/21 [History] Past Medical History - Past Health History Medical/Surgical History: Denies Medical/Surgical History HEENT History: Reports: Impaired Vision Cardiovascular History: Reports: High Cholesterol, Hypertension Respiratory History: Reports: None Gastrointestinal History: Reports: None Genitourinary History: Reports: Renal Calculus Musculoskeletal History: Reports: Other (See Below) Neurological History: Reports: CVA Other Neuro History: Stroke in 2017 Psychiatric History: Reports: None Endocrine/Metabolic History: Reports: Obesity/BMI 30+ Hematologic History: Reports: None Immunologic History: Reports: None Oncologic (Cancer) History: Reports: None Dermatologic History: Reports: None - Infectious Disease History Infectious Disease History: Reports: Chicken Pox, Influenza - Past Surgical History Head Surgeries/Procedures: Reports: None HEENT Surgical History: Reports: Other (See Below) Other HEENT Surgeries/Procedures: tooth extraction, wears glasses. Male Surgical History: Reports: None Endocrine Surgical History: Reports: None Musculoskeletal Surgical History: Reports: Arthroscopic Procedure, Other (See Below) Other Musculoskeletal Surgeries/Procedures:: right wrist surgery seconadry to fracture Social & Family History - Family History Family Medical History: No Pertinent Family History HEENT: Reports: None Cardiac: Reports: Bypass, Hypertension, Stent Respiratory: Reports: None GI: Reports: None : Reports: None Musculoskeletal: Reports: None Neurological: Reports: None Psychiatric: Reports: None Endocrine/Metabolic: Reports: None Hematologic: Reports: None Immunologic: Reports: None Dermatologic: Reports: None Oncologic: Reports: None - Tobacco Use Tobacco Use Status *Q: Former Tobacco User Used Tobacco, but Quit: Yes Month/Year Tobacco Last Used: 10 years ago - Caffeine Use Caffeine Use: Reports: Energy Drinks - Recreational Drug Use Recreational Drug Use: No H&P Review of Systems - Review of Systems: Review Of Systems: See Below General: Reports: Fever, Chills, Malaise, Fatigue HEENT: Reports: Sinus Congestion, Sore Throat. Denies: Headaches Pulmonary: Reports: Shortness of Breath, Cough, Sputum Cardiovascular: Reports: Dyspnea on Exertion. Denies: Chest Pain, Palpitations Gastrointestinal: Reports: No Symptoms. Denies: Abdominal Pain, Black Stool, Bloody Stool, Nausea, Vomiting Genitourinary: Reports: No Symptoms. Denies: Dysuria Musculoskeletal: Reports: No Symptoms Skin: Reports: No Symptoms Psychiatric: Reports: No Symptoms Neurological: Reports: No Symptoms Hematologic/Lymphatic: Reports: No Symptoms Immunologic: Reports: No Symptoms Exam - Exam Exam: See Below - Vital Signs Vital Signs: Last Vital Signs Temp 97.0 F 10/12/21 04:01 Pulse 70 10/12/21 04:01 Resp 20 10/12/21 04:01 BP 112/75 10/12/21 04:01 Pulse Ox 92 L 10/12/21 04:01 Weight: 107.774 kg - Exam Quality Assessment: Supplemental Oxygen (6 L high flow nasal cannula), DVT Prophylaxis General: Alert, Oriented, Cooperative HEENT: Conjunctiva Clear, Posterior Pharynx Clear. No: Mucosa Moist & [place] (Dry lips mucous membranes) Lungs: Decreased Breath Sounds (Bibasilar). No: Normal Respiratory Effort (Dyspnea with exertion) Cardiovascular: Regular Rate, Regular Rhythm, Normal S1, Normal S2. No: Systolic Murmur GI/Abdominal Exam: Normal Bowel Sounds, Soft, Non-Tender Back Exam: Normal Inspection, Full Range of Motion Extremities: Normal Inspection, Normal Range of Motion, No Pedal Edema, Normal Capillary Refill Skin: Warm, Dry Neuro Extensive - Mental Status: Alert, Oriented x3 Neuro Extensive - Motor, Sensory, Reflexes: CN II-XII Intact Psychiatric: Alert, Normal Affect, Normal Mood - Patient Data Lab Results Last 24 hrs: Laboratory Results - last 24 hr 10/11/21 10/11/21 10/11/21 Range/Units 19:07 19:20 19:20 WBC 7.43 (4.0-11.0) K/uL RBC 4.88 (4.50-5.90) M/uL Hgb 15.1 (13.0-17.0) g/dL Hct 42.7 (38.0-50.0) % MCV 87.5 (80.0-98.0) fL MCH 30.9 (27.0-32.0) pg MCHC 35.4 (31.0-37.0) g/dL RDW Std Deviation 43.1 (28.0-62.0) fl RDW Coeff of Amanda 14 (11.0-15.0) % Plt Count 213 (150-400) K/uL MPV 9.90 (7.40-12.00) fL Neut % (Auto) 84.5 H (48.0-80.0) % Lymph % (Auto) 7.3 L (16.0-40.0) % [place] % (Auto) 7.7 (0.0-15.0) % Eos % (Auto) 0.4 (0.0-7.0) % Baso % (Auto) 0.1 (0.0-1.5) % Neut # (Auto) 6.3 H (1.4-5.7) K/uL Lymph # (Auto) 0.5 L (0.6-2.4) K/uL [place] # (Auto) 0.6 (0.0-0.8) K/uL Eos # (Auto) 0.0 (0.0-0.7) K/uL Baso # (Auto) 0.0 (0.0-0.1) K/uL Nucleated RBC % 0.0 /100WBC Nucleated RBCs # 0 K/uL Sodium 135 L (136-148) mmol/L Potassium 3.8 (3.5-5.1) mmol/L Chloride 100 (98-107) mmol/L Carbon Dioxide 27.4 (21.0-32.0) mmol/L BUN 21 H (7.0-18.0) mg/dL Creatinine 1.1 (0.8-1.3) mg/dL Est Cr Clr Drug Dosing 83.91 mL/min Estimated GFR (MDRD) > 60.0 ml/min Glucose 106 (74-106) mg/dL Lactic Acid (0.4-2.0) mmol/L Calcium 8.1 L (8.5-10.1) mg/dL Total Bilirubin 1.3 H (0.2-1.0) mg/dL AST 189 H (15-37) IU/L ALT 210 H (14-63) IU/L Alkaline Phosphatase 108 (46-116) U/L B-Natriuretic Peptide (<100) PG/ML Total Protein 6.4 (6.4-8.2) g/dL Albumin 2.8 L (3.4-5.0) g/dL Globulin 3.6 (2.6-4.0) g/dL Albumin/Globulin Ratio 0.8 L (0.9-1.6) Urine Color Urine Appearance Urine pH (5.0-8.0) Ur Specific [place] (1.001-1.035) Urine Protein (NEGATIVE) mg/dL Urine Glucose (UA) (NEGATIVE) mg/dL Urine Ketones (NEGATIVE) mg/dL Urine Occult Blood (NEGATIVE) Urine Nitrite (NEGATIVE) Urine Bilirubin (NEGATIVE) Urine Urobilinogen (<2.0) EU/dL Ur Leukocyte Esterase (NEGATIVE) Influenza Type A RNA NEGATIVE (NEGATIVE) Influenza Type B RNA NEGATIVE (NEGATIVE) SARS-CoV-2 RNA (ROGER) POSITIVE H (NEGATIVE) 10/11/21 10/11/21 10/11/21 Range/Units 19:20 19:41 20:13 WBC (4.0-11.0) K/uL RBC (4.50-5.90) M/uL Hgb (13.0-17.0) g/dL Hct (38.0-50.0) % MCV (80.0-98.0) fL MCH (27.0-32.0) pg MCHC (31.0-37.0) g/dL RDW Std Deviation (28.0-62.0) fl RDW Coeff of Amanda (11.0-15.0) % Plt Count (150-400) K/uL MPV (7.40-12.00) fL Neut % (Auto) (48.0-80.0) % Lymph % (Auto) (16.0-40.0) % [place] % (Auto) (0.0-15.0) % Eos % (Auto) (0.0-7.0) % Baso % (Auto) (0.0-1.5) % Neut # (Auto) (1.4-5.7) K/uL Lymph # (Auto) (0.6-2.4) K/uL [place] # (Auto) (0.0-0.8) K/uL Eos # (Auto) (0.0-0.7) K/uL Baso # (Auto) (0.0-0.1) K/uL Nucleated RBC % /100WBC Nucleated RBCs # K/uL Sodium (136-148) mmol/L Potassium (3.5-5.1) mmol/L Chloride (98-107) mmol/L Carbon Dioxide (21.0-32.0) mmol/L BUN (7.0-18.0) mg/dL Creatinine (0.8-1.3) mg/dL Est Cr Clr Drug Dosing mL/min Estimated GFR (MDRD) ml/min Glucose (74-106) mg/dL Lactic Acid 1.6 (0.4-2.0) mmol/L Calcium (8.5-10.1) mg/dL Total Bilirubin (0.2-1.0) mg/dL AST (15-37) IU/L ALT (14-63) IU/L Alkaline Phosphatase (46-116) U/L B-Natriuretic Peptide 10 (<100) PG/ML Total Protein (6.4-8.2) g/dL Albumin (3.4-5.0) g/dL Globulin (2.6-4.0) g/dL Albumin/Globulin Ratio (0.9-1.6) Urine Color YELLOW Urine Appearance CLEAR Urine pH 6.0 (5.0-8.0) Ur Specific [place] 1.015 (1.001-1.035) Urine Protein NEGATIVE (NEGATIVE) mg/dL Urine Glucose (UA) NEGATIVE (NEGATIVE) mg/dL Urine Ketones NEGATIVE (NEGATIVE) mg/dL Urine Occult Blood NEGATIVE (NEGATIVE) Urine Nitrite NEGATIVE (NEGATIVE) Urine Bilirubin NEGATIVE (NEGATIVE) Urine Urobilinogen 0.2 (<2.0) EU/dL Ur Leukocyte Esterase NEGATIVE (NEGATIVE) Influenza Type A RNA (NEGATIVE) Influenza Type B RNA (NEGATIVE) SARS-CoV-2 RNA (ROGER) (NEGATIVE) 10/12/21 10/12/21 Range/Units 06:05 06:05 WBC 3.72 L (4.0-11.0) K/uL RBC 5.03 (4.50-5.90) M/uL Hgb 15.2 (13.0-17.0) g/dL Hct 44.8 (38.0-50.0) % MCV 89.1 (80.0-98.0) fL MCH 30.2 (27.0-32.0) pg MCHC 33.9 (31.0-37.0) g/dL RDW Std Deviation 44.9 (28.0-62.0) fl RDW Coeff of [place] 14 (11.0-15.0) % Plt Count 235 (150-400) K/uL MPV 10.60 (7.40-12.00) fL Neut % (Auto) 80.4 H (48.0-80.0) % Lymph % (Auto) 13.2 L (16.0-40.0) % [place] % (Auto) 5.9 (0.0-15.0) % Eos % (Auto) 0.0 (0.0-7.0) % Baso % (Auto) 0.5 (0.0-1.5) % Neut # (Auto) 3.0 (1.4-5.7) K/uL Lymph # (Auto) 0.5 L (0.6-2.4) K/uL [place] # (Auto) 0.2 (0.0-0.8) K/uL Eos # (Auto) 0.0 (0.0-0.7) K/uL Baso # (Auto) 0.0 (0.0-0.1) K/uL Nucleated RBC % 0.0 /100WBC Nucleated RBCs # 0 K/uL Sodium 138 (136-148) mmol/L Potassium 4.8 (3.5-5.1) mmol/L Chloride 103 (98-107) mmol/L Carbon Dioxide 27.5 (21.0-32.0) mmol/L BUN 19 H (7.0-18.0) mg/dL Creatinine 1.0 (0.8-1.3) mg/dL Est Cr Clr Drug Dosing 92.30 mL/min Estimated GFR (MDRD) > 60.0 ml/min Glucose 138 H (74-106) mg/dL Lactic Acid (0.4-2.0) mmol/L Calcium 8.7 (8.5-10.1) mg/dL Total Bilirubin 1.1 H (0.2-1.0) mg/dL AST 162 H (15-37) IU/L ALT 226 H (14-63) IU/L Alkaline Phosphatase 125 H (46-116) U/L B-Natriuretic Peptide (<100) PG/ML Total Protein 6.7 (6.4-8.2) g/dL Albumin 2.8 L (3.4-5.0) g/dL Globulin 3.9 (2.6-4.0) g/dL Albumin/Globulin Ratio 0.7 L (0.9-1.6) Urine Color Urine Appearance Urine pH (5.0-8.0) Ur Specific [place] (1.001-1.035) Urine Protein (NEGATIVE) mg/dL Urine Glucose (UA) (NEGATIVE) mg/dL Urine Ketones (NEGATIVE) mg/dL Urine Occult Blood (NEGATIVE) Urine Nitrite (NEGATIVE) Urine Bilirubin (NEGATIVE) Urine Urobilinogen (<2.0) EU/dL Ur Leukocyte Esterase (NEGATIVE) Influenza Type A RNA (NEGATIVE) Influenza Type B RNA (NEGATIVE) SARS-CoV-2 RNA (ROGER) (NEGATIVE) Result Diagrams: 10/12/21 06:05 10/12/21 06:05 Sepsis Event Note - Evaluation Sepsis Screening Result: No Definite Risk - Focused Exam Vital Signs: Vital Signs Temp Pulse Resp BP BP Pulse Ox 10/12/21 04:01 97.0 F 70 20 112/75 92 L 10/11/21 23:17 96.2 F L 74 18 114/64 93 L 10/11/21 22:18 83 20 134/84 93 L 10/11/21 20:28 77 114/58 L - Problem List (1) Acute respiratory failure with hypoxia SNOMED Code(s): 43436134, 165039536 ICD Code: J96.01 - ACUTE RESPIRATORY FAILURE WITH HYPOXIA Status: Acute Current Visit: Yes (2) COVID-19 virus infection SNOMED Code(s): 658610563 ICD Code: U07.1 - COVID-19 Status: Acute Current Visit: No (3) CVA (cerebral vascular accident) SNOMED Code(s): 732133529 ICD Code: I63.9 - CEREBRAL INFARCTION, UNSPECIFIED Status: Chronic Current Visit: No Qualifiers: Laterality of affected vessel: left (4) Dyslipidemia SNOMED Code(s): 274562131 ICD Code: E78.5 - HYPERLIPIDEMIA, UNSPECIFIED Status: Chronic Current Vis it: No (5) HTN (hypertension) SNOMED Code(s): 35102612 ICD Code: I10 - ESSENTIAL (PRIMARY) HYPERTENSION Status: Chronic Current Visit: No (6) Transaminitis SNOMED Code(s): 657122441, 047805775 ICD Code: R74.01 - ELEVATION OF LEVELS OF LIVER TRANSAMINASE LEVELS Status: Chronic Current Visit: Yes Problem List Initiated/Reviewed/Updated: Yes Orders Last 24hrs: Active Orders 24 hr Category Date Time Status Patient Status [ADT] Routine ADT 10/11/21 20:33 Active Telemetry Monitoring [Cardiac Monitoring] [RC] Q8H Care 10/11/21 23:38 Active Regular Diet [DIET] Diet 10/12/21 Breakfast Active CRP [C-REACTIVE PROTEIN] [CHEM] Routine Lab 10/12/21 08:17 Ordered CULTURE BLOOD [BC] Stat Lab 10/11/21 19:36 Received CULTURE BLOOD [BC] Stat Lab 10/11/21 19:41 Received Sodium Chloride 0.9% [Saline Flush] Med 10/11/21 19:24 Active 10 ml FLUSH ASDIRECTED PRN Sodium Chloride 0.9% [Saline Flush] Med 10/11/21 19:24 Active 2.5 ml FLUSH ASDIRECTED PRN Blood Culture x2 Reflex Set [OM.PC] Stat Oth 10/11/21 19:25 Ordered Saline Lock Insert [OM.PC] Stat Oth 10/11/21 19:25 Ordered Medication Orders Sodium Chloride (Sodium Chloride 0.9% 10 Ml Syringe) 10 ml FLUSH ASDIRECTED PRN PRN Reason: Keep Vein Open Last Admin: 10/11/21 19:43 Dose: 10 ml Documented by: JEAN Sodium Chloride (Sodium Chloride 0.9% 2.5 Ml Syringe) 2.5 ml FLUSH ASDIRECTED PRN PRN Reason: Keep Vein Open Last Admin: 10/11/21 19:44 Dose: 2.5 ml Documented by: JEAN Assessment/Plan Comment:: This 46-year-old male admitted with acute hypoxic respiratory failure and COVID- 19 1. Acute hypoxic respiratory failure/COVID-19 -Oxygen to keep sats greater than 92% wean as possible currently needing 6 L on second rounds patient needing 8 L nasal cannula will transition to Vapotherm currently on 60 L flow 50% FiO2. -CRP elevated at 4. Discussed the emergency use authorization for baricitinib. Discussed the risks and benefits along with possible side effects allergic reaction and risk for secondary bacterial infection. Patient verbalized agreement and signed consent for use of baricitinib will start 4 mg p.o. daily. -Continue dexamethasone 6 mg p.o. daily -Continue remdesivir IV daily x5 doses total -Encourage pulmonary toileting including I-S every 1 hour and proning at least 12 to 16 hours daily -Combivent inhaler as needed -Monitor LFTs while on remdesivir currently mild transaminitis but not over 10 times normal limit. -Lovenox daily for VT prophylaxis 2. HTN/HLD/history of CVA -Continue to monitor blood pressure. -Continue home medications including aspirin and statin and losartan hydrochlorothiazide VTE prophylaxis: Lovenox GI prophylaxis: Protonix CODE STATUS: Full code Dispo: Pending improvement and decreasing oxygen needs.
[2021-10-12] MEDS ORDERED: Sodium Chloride 0.9% 10 ML Syringe FLUSH PRN (08:30)
[2021-10-12] MEDS ORDERED: Sodium Chloride 0.9% 2.5 ML Syringe FLUSH PRN (08:30)
[2021-10-12] MEDS ORDERED: Docusate Sodium 100 MG Cap PO PRN (09:00)
[2021-10-12] MEDS ORDERED: Acetaminophen 325 MG Tab PO PRN (09:00)
[2021-10-12] MEDS ORDERED: Ondansetron 4 MG/2 ML SDV IVPUSH PRN (09:00)
[2021-10-12] MEDS ORDERED: Codeine/guaiFENesin 10-100 MG/5 ML Syrup 5 ML Cup PO PRN (09:05)
[2021-10-12] MEDS ORDERED: Benzonatate 100 MG Cap PO PRN (09:05)
[2021-10-12] MEDS: Dexamethasone 4 MG Tab PO SCH (11:09)
[2021-10-12] MEDS: Enoxaparin 40 MG/0.4 ML Syringe SUBCUT SCH (11:10)
[2021-10-12] MEDS: Pantoprazole 40 MG Tab.CR PO SCH (12:20)
[2021-10-12] MEDS: REMDESIVIR 100 MG in Sodium Chloride 0.9% 100 ML IV SCH (20:27)
[2021-10-13 06:51] LABS: BLOOD UREA NITROGEN,BUN 28 mg/dL (7.0-18.0); CARBON DIOXIDE,CO2 25.4 mmol/L (21.0-32.0); CHLORIDE,CL 104 mmol/L (98-107); GLUCOSE RANDOM 122 mg/dL (74-106); POTASSIUM,K 4.1 mmol/L (3.5-5.1); SODIUM,NA 138 mmol/L (136-148)
--- NOTE | 2021-10-13 08:14 | PCM.PN ---
- General Info Date of Service: 10/13/21 Admission Dx/Problem (Free Text): Admission Diagnosis/Problem Admission Diagnosis/Problem Respiratory failure with hypoxia Subjective Update: Feeling somewhat improved today. Denies any chest pain. Reports shortness of breath is stable and mildly present. Reports mild cough. Patient has been doing well with proning and incentive spirometer use. Patient very concerned about seeing his today and has threatened leaving AGAINST MEDICAL ADVICE if he does not see his . We did discuss with him at length the dangers of leaving. Administration did speak with patient and was able to have be seen through the window patient has improved since then and is willing to stay at this time. Functional Status: Reports: Pain Controlled, Tolerating Diet, Ambulating, Urinating - Review of Systems General: Reports: No Symptoms. Denies: Weakness, Fatigue Pulmonary: Reports: Shortness of Breath, Cough Cardiovascular: Reports: Dyspnea on Exertion. Denies: Chest Pain Gastrointestinal: Reports: No Symptoms. Denies: Abdominal Pain, Nausea, Vomiting Genitourinary: Reports: No Symptoms. Denies: Dysuria, Frequency Musculoskeletal: Reports: No Symptoms Skin: Reports: No Symptoms Neurological: Reports: No Symptoms Psychiatric: Reports: No Symptoms - Patient Data Vitals - Most Recent: Last Vital Signs Temp 96.5 F L 10/13/21 05:00 Pulse 67 10/13/21 05:00 Resp 20 10/13/21 05:00 BP 126/80 10/13/21 05:00 Pulse Ox 93 L 10/13/21 07:23 Weight - Most Recent: 107.774 kg Lab Results Last 24 Hours: Laboratory Results - last 24 hr 10/12/21 10/13/21 10/13/21 Range/Units 06:05 05:42 05:42 WBC 8.26 (4.0-11.0) K/uL RBC 4.58 (4.50-5.90) M/uL Hgb 13.9 (13.0-17.0) g/dL Hct 40.1 (38.0-50.0) % MCV 87.6 (80.0-98.0) fL MCH 30.3 (27.0-32.0) pg MCHC 34.7 (31.0-37.0) g/dL RDW Std Deviation 43.3 (28.0-62.0) fl RDW Coeff of Amanda 14 (11.0-15.0) % Plt Count 301 (150-400) K/uL MPV 10.00 (7.40-12.00) fL Neut % (Auto) 80.9 H (48.0-80.0) % Lymph % (Auto) 9.3 L (16.0-40.0) % [place] % (Auto) 9.6 (0.0-15.0) % Eos % (Auto) 0.1 (0.0-7.0) % Baso % (Auto) 0.1 (0.0-1.5) % Neut # (Auto) 6.7 H (1.4-5.7) K/uL Lymph # (Auto) 0.8 (0.6-2.4) K/uL [place] # (Auto) 0.8 (0.0-0.8) K/uL Eos # (Auto) 0.0 (0.0-0.7) K/uL Baso # (Auto) 0.0 (0.0-0.1) K/uL Nucleated RBC % 0.0 /100WBC Nucleated RBCs # 0 K/uL Sodium 138 (136-148) mmol/L Potassium 4.1 (3.5-5.1) mmol/L Chloride 104 (98-107) mmol/L Carbon Dioxide 25.4 (21.0-32.0) mmol/L BUN 28 H (7.0-18.0) mg/dL Creatinine 0.9 (0.8-1.3) mg/dL Est Cr Clr Drug Dosing 102.56 mL/min Estimated GFR (MDRD) > 60.0 ml/min Glucose 122 H (74-106) mg/dL Calcium 8.1 L (8.5-10.1) mg/dL Total Bilirubin 0.7 (0.2-1.0) mg/dL AST 113 H (15-37) IU/L ALT 192 H (14-63) IU/L Alkaline Phosphatase 99 (46-116) U/L C-Reactive Protein 4.00 H (0.00-0.90) mg/dL Total Protein 6.0 L (6.4-8.2) g/dL Albumin 2.6 L (3.4-5.0) g/dL Globulin 3.4 (2.6-4.0) g/dL Albumin/Globulin Ratio 0.8 L (0.9-1.6) Jamal Results Last 24 Hours: Microbiology 10/11/21 19:41 Aerobic Blood Culture - Preliminary Blood - Venous - Lab Draw NO GROWTH AFTER 1 DAY Anaerobic Blood Culture - Preliminary NO GROWTH AFTER 1 DAY 10/11/21 19:36 Aerobic Blood Culture - Preliminary Blood - Venous NO GROWTH AFTER 1 DAY Anaerobic Blood Culture - Preliminary NO GROWTH AFTER 1 DAY Med Orders - Current: Current Medications Acetaminophen (Acetaminophen 325 Mg Tab) 650 mg PO Q4H PRN PRN Reason: Pain (Mild 1-3)/fever Albuterol/Ipratropium (Albuterol/Ipratropium 4 Gm Inhalation [place]) 0 gm INH Q4HRRT PRN PRN Reason: Dyspnea Aspirin (Aspirin 325 Mg Tab) 325 mg PO DAILY [facility] Atorvastatin Calcium (Atorvastatin 40 Mg Tab) 80 mg PO WITHBREAKFAST [facility] Baricitinib (Baricitinib 2 Mg Tab) 4 mg PO DAILY [facility] Last Admin: 10/12/21 12:19 Dose: 4 mg Documented by: Benzonatate (Benzonatate 100 Mg Cap) 200 mg PO Q8H PRN PRN Reason: Cough Last Admin: 10/12/21 11:13 Dose: 200 mg Documented by: Dexamethasone (Dexamethasone 4 Mg Tab) 6 mg PO DAILY [facility] Last Admin: 10/12/21 11:09 Dose: 6 mg Documented by: Docusate Sodium (Docusate Sodium 100 Mg Cap) 100 mg PO BID PRN PRN Reason: Constipation Enoxaparin Sodium (Enoxaparin 40 Mg/0.4 Ml Syringe) 40 mg SUBCUT Q24H [facility] Last Admin: 10/12/21 11:10 Dose: 40 mg Documented by: Guaifenesin/Codeine Phosphate (Codeine/Guaifenesin 10-100 Mg/5 Ml Syrup 5 Ml Cup) 5 ml PO Q4H PRN PRN Reason: Cough HCTZ/Losartan Potassium (Hydrochlorothiazide/Losartan 12.5-50 Mg Tab) 1 tab PO WITHBREAKFAST [facility] Remdesivir 100 mg/ Sodium (Chloride) 100 mls @ 100 mls/hr IV Q24H [facility] Stop: 10/15/21 20:59 Last Admin: 10/12/21 20:27 Dose: 100 mls/hr Documented by: Ondansetron HCl (Ondansetron 4 Mg/2 Ml Sdv) 4 mg IVPUSH Q4H PRN PRN Reason: Nausea Pantoprazole Sodium (Pantoprazole 40 Mg Tab.Cr) 40 mg PO ACBREAKFAST BRIJESH Last Admin: 10/12/21 12:20 Dose: Not Given Documented by: Sodium Chloride (Sodium Chloride 0.9% 10 Ml Syringe) 10 ml FLUSH ASDIRECTED PRN PRN Reason: Keep Vein Open Sodium Chloride (Sodium Chloride 0.9% 2.5 Ml Syringe) 2.5 ml FLUSH ASDIRECTED PRN PRN Reason: Keep Vein Open Discontinued Medications Dexamethasone (Dexamethasone 10 Mg/Ml Sdv) 10 mg IVPUSH ONETIME ONE Stop: 10/11/21 20:33 Last Admin: 10/11/21 20:43 Dose: 10 mg Documented by: Remdesivir 200 mg/ Sodium (Chloride) 250 mls @ 250 mls/hr IV ONETIME ONE Stop: 10/11/21 20:26 Last Admin: 10/11/21 21:20 Dose: 250 mls/hr Documented by: Iopamidol (Iopamidol 755 Mg/Ml 500 Ml Multipack Bottle) 100 ml IVPUSH ONETIME ONE Stop: 10/11/21 20:48 Last Admin: 10/11/21 20:47 Dose: 100 ml Documented by: Sodium Chloride (Sodium Chloride 0.9% 10 Ml Syringe) 10 ml FLUSH ASDIRECTED PRN PRN Reason: Keep Vein Open Last Admin: 10/11/21 19:43 Dose: 10 ml Documented by: Sodium Chloride (Sodium Chloride 0.9% 2.5 Ml Syringe) 2.5 ml FLUSH ASDIRECTED PRN PRN Reason: Keep Vein Open Last Admin: 10/11/21 19:44 Dose: 2.5 ml Documented by: - Exam Quality Assessment: Supplemental Oxygen (Decreased down to 4 L nasal cannula), DVT Prophylaxis General: Alert, Oriented, Cooperative, No Acute Distress Lungs: Clear to Auscultation, Normal Respiratory Effort, Other (Dyspnea was noted with exertion.) Cardiovascular: Regular Rate, Regular Rhythm GI/Abdominal Exam: Normal Bowel Sounds, Soft, Non-Tender Back Exam: Normal Inspection, Full Range of Motion Extremities: Normal Inspection, Normal Range of Motion, Non-Tender, No Pedal Edema Wound/Incisions: Healing Well Neurological: No New Focal Deficit Psy/Mental Status: Alert, Normal Affect, Normal Mood - Patient Data Lab Results Last 24 hrs: Laboratory Results - last 24 hr 10/12/21 10/13/21 10/13/21 Range/Units 06:05 05:42 05:42 WBC 8.26 (4.0-11.0) K/uL RBC 4.58 (4.50-5.90) M/uL Hgb 13.9 (13.0-17.0) g/dL Hct 40.1 (38.0-50.0) % MCV 87.6 (80.0-98.0) fL MCH 30.3 (27.0-32.0) pg MCHC 34.7 (31.0-37.0) g/dL RDW Std Deviation 43.3 (28.0-62.0) fl RDW Coeff of Amanda 14 (11.0-15.0) % Plt Count 301 (150-400) K/uL MPV 10.00 (7.40-12.00) fL Neut % (Auto) 80.9 H (48.0-80.0) % Lymph % (Auto) 9.3 L (16.0-40.0) % [place] % (Auto) 9.6 (0.0-15.0) % Eos % (Auto) 0.1 (0.0-7.0) % Baso % (Auto) 0.1 (0.0-1.5) % Neut # (Auto) 6.7 H (1.4-5.7) K/uL Lymph # (Auto) 0.8 (0.6-2.4) K/uL [place] # (Auto) 0.8 (0.0-0.8) K/uL Eos # (Auto) 0.0 (0.0-0.7) K/uL Baso # (Auto) 0.0 (0.0-0.1) K/uL Nucleated RBC % 0.0 /100WBC Nucleated RBCs # 0 K/uL Sodium 138 (136-148) mmol/L Potassium 4.1 (3.5-5.1) mmol/L Chloride 104 (98-107) mmol/L Carbon Dioxide 25.4 (21.0-32.0) mmol/L BUN 28 H (7.0-18.0) mg/dL Creatinine 0.9 (0.8-1.3) mg/dL Est Cr Clr Drug Dosing 102.56 mL/min Estimated GFR (MDRD) > 60.0 ml/min Glucose 122 H (74-106) mg/dL Calcium 8.1 L (8.5-10.1) mg/dL Total Bilirubin 0.7 (0.2-1.0) mg/dL AST 113 H (15-37) IU/L ALT 192 H (14-63) IU/L Alkaline Phosphatase 99 (46-116) U/L C-Reactive Protein 4.00 H (0.00-0.90) mg/dL Total Protein 6.0 L (6.4-8.2) g/dL Albumin 2.6 L (3.4-5.0) g/dL Globulin 3.4 (2.6-4.0) g/dL Albumin/Globulin Ratio 0.8 L (0.9-1.6) Result Diagrams: 10/13/21 05:42 10/13/21 05:42 Jamal Results Last 24 hrs: Microbiology 10/11/21 19:41 Aerobic Blood Culture - Preliminary Blood - Venous - Lab Draw NO GROWTH AFTER 1 DAY Anaerobic Blood Culture - Preliminary NO GROWTH AFTER 1 DAY 10/11/21 19:36 Aerobic Blood Culture - Preliminary Blood - Venous NO GROWTH AFTER 1 DAY Anaerobic Blood Culture - Preliminary NO GROWTH AFTER 1 DAY Sepsis Event Note - Evaluation Sepsis Screening Result: No Definite Risk - Focused Exam Vital Signs: Vital Signs Temp Pulse Resp BP Pulse Ox 10/13/21 07:23 93 L 10/13/21 05:00 96.5 F L 67 20 126/80 93 L 10/13/21 01:35 97.5 F 81 22 H 145/84 H 93 L - Problem List & Annotations (1) Acute respiratory failure with hypoxia SNOMED Code(s): 30605428, 140059709 Code(s): J96.01 - ACUTE RESPIRATORY FAILURE WITH HYPOXIA Status: Acute Current Visit: Yes (2) COVID-19 virus infection SNOMED Code(s): 315611750 Code(s): U07.1 - COVID-19 Status: Acute Current Visit: No (3) CVA (cerebral vascular accident) SNOMED Code(s): 969433697 Code(s): I63.9 - CEREBRAL INFARCTION, UNSPECIFIED Status: Chronic Current Visit: No Qualifiers: Laterality of affected vessel: left (4) Dyslipidemia SNOMED Code(s): 491836913 Code(s): E78.5 - HYPERLIPIDEMIA, UNSPECIFIED Status: Chronic Current Visit: No (5) HTN (hypertension) SNOMED Code(s): 81032132 Code(s): I10 - ESSENTIAL (PRIMARY) HYPERTENSION Status: Chronic Current Visit: No (6) Transaminitis SNOMED Code(s): 443023307, 481576341 Code(s): R74.01 - ELEVATION OF LEVELS OF LIVER TRANSAMINASE LEVELS Status: Chronic Current Visit: Yes - Problem List Review Problem List Initiated/Reviewed/Updated: Yes - My Orders Last 24 Hours: My Active Orders 10/12/21 08:19 Intake and Output [RC] QSHIFT Oxygen Therapy [RC] PRN Positioning, Patient [RC] ASDIRECTED RT Incentive Spirometry [RC] Q1HWA Up With Assistance [RC] ASDIRECTED VTE/DVT Education [RC] PER UNIT ROUTINE Vital Signs [RC] Q4H Albuterol/Ipratropium [Combivent Respimat] See Dose Instructions INH Q4HRRT PRN Saline Lock Insert [OM.PC] Routine 10/12/21 08:21 RT Post Treatment Assessment [RC] Click to Edit RT Pre-Treatment Assessment [RC] Click to Edit 10/12/21 08:30 Pantoprazole [ProTONIX] 40 mg PO ACBREAKFAST Sodium Chloride 0.9% [Saline Flush] 10 ml FLUSH ASDIRECTED PRN Sodium Chloride 0.9% [Saline Flush] 2.5 ml FLUSH ASDIRECTED PRN 10/12/21 09:00 Acetaminophen [TylenoL] 650 mg PO Q4H PRN Docusate Sodium [Colace] 100 mg PO BID PRN Enoxaparin [Lovenox] 40 mg SUBCUT Q24H Ondansetron [Zofran] 4 mg IVPUSH Q4H PRN dexAMETHasone 6 mg PO DAILY 10/12/21 09:05 Benzonatate [Tessalon Perles] 200 mg PO Q8H PRN Codeine/guaiFENesin [Robitussin AC] 5 ml PO Q4H PRN 10/12/21 09:06 Resuscitation Status Routine 10/12/21 11:15 Baricitinib [Olumiant] 4 mg PO DAILY 10/12/21 20:00 Remdesivir 100 mg Sodium Chloride 0.9% [Normal Saline AdvBag] 100 ml IV Q24H 10/13/21 08:00 Hydrochlorothiazide/Losartan [Hyzaar 50-12.5 MG] 1 tab PO WITHBREAKFAST atorvaSTATin [Lipitor] 80 mg PO WITHBREAKFAST 10/13/21 09:00 Aspirin 325 mg PO DAILY - Plan Plan:: This 46-year-old male admitted with acute hypoxic respiratory failure and COVID- 19 1. Acute hypoxic respiratory failure/COVID-19 -Oxygen to keep sats greater than 92% wean as possible currently needing 4 L nasal cannula today continue to monitor -Continue baricitinib 4 mg p.o. daily. -Continue dexamethasone 6 mg p.o. daily -Continue remdesivir IV daily x5 doses total -Encourage pulmonary toileting including I-S every 1 hour and proning at least 12 to 16 hours daily -Combivent inhaler as needed -Monitor LFTs while on remdesivir currently mild transaminitis but not over 10 times normal limit. -Lovenox daily for VTE prophylaxis 2. HTN/HLD/history of CVA -Continue to monitor blood pressure. -Continue home medications including aspirin and statin and losartan hydrochlorothiazide VTE prophylaxis: Lovenox GI prophylaxis: Protonix CODE STATUS: Full code Dispo: Pending improvement and decreasing oxygen needs.
[2021-10-13] MEDS: Pantoprazole 40 MG Tab.CR PO SCH (08:54)
[2021-10-13] MEDS: Dexamethasone 4 MG Tab PO SCH (08:55)
[2021-10-13] MEDS: Aspirin 325 MG Tab PO SCH (08:56)
[2021-10-13] MEDS: Hydrochlorothiazide/Losartan 12.5-50 mg Tab PO SCH (08:57)
[2021-10-13] MEDS: atorvaSTATin 40 MG Tab PO SCH (08:59)
[2021-10-13] MEDS: Enoxaparin 40 MG/0.4 ML Syringe SUBCUT SCH (09:03)
[2021-10-13] MEDS: REMDESIVIR 100 MG in Sodium Chloride 0.9% 100 ML IV SCH (20:27)
[2021-10-14] MEDS: Pantoprazole 40 MG Tab.CR PO SCH (06:50)
[2021-10-14 07:43] LABS: BLOOD UREA NITROGEN,BUN 23 mg/dL (7.0-18.0); CARBON DIOXIDE,CO2 27.3 mmol/L (21.0-32.0); CHLORIDE,CL 106 mmol/L (98-107); GLUCOSE RANDOM 124 mg/dL (74-106); POTASSIUM,K 4.1 mmol/L (3.5-5.1); SODIUM,NA 141 mmol/L (136-148)
[2021-10-14] MEDS: Dexamethasone 4 MG Tab PO SCH (08:11)
[2021-10-14] MEDS: Aspirin 325 MG Tab PO SCH (08:12)
[2021-10-14] MEDS: Enoxaparin 40 MG/0.4 ML Syringe SUBCUT SCH (08:13)
[2021-10-14] MEDS: atorvaSTATin 40 MG Tab PO SCH (08:13)
[2021-10-14] MEDS: Hydrochlorothiazide/Losartan 12.5-50 mg Tab PO SCH (08:13)
[2021-10-14 11:59] VITALS: PULSE 69
--- NOTE | 2021-10-14 12:49 | PCM.DCSUM1 ---
Discharge Summary - Hospital Course Brief History: This 46-year-old male with past medical history of HTN, HLD and CVA presented to the ER with complaints of shortness of breath that started 1 to 2 days ago. He reports that he ultimately became sick approximately 10 days with cough and congestion. Reports his did an at home Covid test on him which was positive. He reports he started feeling worse the last couple days with worsening shortness of breath. Reports nonproductive cough. Reports subjective fevers. Denies any vomiting nausea or diarrhea. No abdominal pain. Denies any urinary concerns. He denies any chest pain diaphoresis or radiating pain to his arms or back. Denies alcohol use, no recreational drug use and no tobacco use, but does vape. reports he is not vaccinated against COVID or influenza. In the ER he was noted to be satting 85% on room air. He was placed on 6 L of oxygen and sats improved to 90s. Covid test positive. CTA of the chest obtained which reveals no cardiomegaly. Bilateral groundglass opacities in dependent lung bases no pleural effusion or pneumothorax. No evidence of thromboembolism. Mild transaminitis noted with bilirubin 1.3 AST 189 ALT 210. Urine negative. Cultures pending. He received 10 mg IV dexamethasone and remdesivir 200 mg in the ER. Patient admitted for acute hypoxic respiratory failure and COVID-19 pneumonia. - Discharge Data Discharge Date: 10/14/21 Discharge Disposition: Home, Self-Care 01 Condition: Stable - Referral to Home Health Primary Care Physician: PCP Not In Area - Discharge Diagnosis/Problem(s) (1) Acute respiratory failure with hypoxia SNOMED Code(s): 92284922, 084144907 ICD Code: J96.01 - ACUTE RESPIRATORY FAILURE WITH HYPOXIA Status: Acute Current Visit: Yes (2) COVID-19 virus infection SNOMED Code(s): 431930124 ICD Code: U07.1 - COVID-19 Status: Acute Current Visit: No (3) CVA (cerebral vascular accident) SNOMED Code(s): 956180251 ICD Code: I63.9 - CEREBRAL INFARCTION, UNSPECIFIED Status: Chronic Current Visit: No Qualifiers: Laterality of affected vessel: left (4) Dyslipidemia SNOMED Code(s): 418635226 ICD Code: E78.5 - HYPERLIPIDEMIA, UNSPECIFIED Status: Chronic Current Visit: No (5) HTN (hypertension) SNOMED Code(s): 33037952 ICD Code: I10 - ESSENTIAL (PRIMARY) HYPERTENSION Status: Chronic Current Visit: No (6) Transaminitis SNOMED Code(s): 813989120, 034792781 ICD Code: R74.01 - ELEVATION OF LEVELS OF LIVER TRANSAMINASE LEVELS Status: Chronic Current Visit: Yes - Patient Summary/Data Hospital Course: Admission diagnoses Acute hypoxic respiratory failure COVID-19 Discharge diagnoses Acute hypoxic respiratory failure COVID-19 Other PMH HTN CVA Obesity Júnior was admitted secondary to acute hypoxic respiratory failure secondary to CO VID-19. He was started on remdesivir and dexamethasone. Within 1 day patient was requiring Vapotherm to keep sats greater than 92%. Patient was started on baricitinib. Patient was then able to be weaned down to 3 L nasal cannula but needed upwards of 5 L with activity. Patient received 4 doses of remdesivir and at this time is unwilling to stay longer in the hospital for continued treatment. Will discuss with him at length the possible cons of leaving early which include due to hypoxia. Recommended that he stay for further treatment but again declined this. Patient verbalized understanding and continues to want to leave the hospital. We will discharge him today with oxygen to keep sats greater than 90% on 3 L continuously nasal cannula along with 5 L with activity. He is up ambulatory within the home. He was noted to be satting 85% on room air and does dipped down to 86% on 3 L nasal cannula with activity. Patient will also be sent home with dexamethasone 6 mg p.o. for 6 more days to complete 10-day course. He will also be given Combivent inhaler as needed shortness of breath and wheezing. He was counseled on symptoms to look out for and when to seek further treatment. These include fevers chest pain or shortness of breath that worsens. He verbalized understanding. He will see PCP in 7 to 10 days. 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 He is to return to the ER clinic if concerns should arise. - Patient Instructions Diet: Regular Diet as Tolerated Activity: No Strenuous Activities Driving: Do Not Drive Showering/Bathing: May Shower Notify Provider of: Fever, Increased Pain, Swelling and Redness, Drainage, Nausea and/or Vomiting - Discharge Plan *PRESCRIPTION DRUG MONITORING PROGRAM REVIEWED*: Not Applicable *COPY OF PRESCRIPTION DRUG MONITORING REPORT IN PATIENT JAYCOB: Not Applicable Prescriptions/Med Rec: Albuterol/Ipratropium [Combivent Respimat] 2 puff INH Q4HRRT PRN #1 inhaler PRN Reason: COVID/SOB dexAMETHasone [Dexamethasone] 6 mg PO DAILY #9 tablet Home Medications: Home Meds Aspirin 325 mg PO DAILY #30 tablet 06/13/17 [Rx] Losartan/Hydrochlorothiazide [Losartan-HCTZ 50-12.5 MG] 62.5 each PO WITHBREAKFAST 10/11/21 [History] atorvaSTATin [Lipitor] 80 mg PO WITHBREAKFAST 10/11/21 [History] Cholecalciferol (Vitamin D3) [Vitamin D] 5,000 unit PO DAILY 10/12/21 [History] Ibuprofen 600 mg PO Q6H PRN 10/12/21 [History] Potassium Chloride [Klor-Con 10] 10 meq PO DAILY 10/12/21 [History] Tadalafil [Cialis] 10 mg PO . NEEDED PRN 10/12/21 [History] Zinc 50 mg PO DAILY 10/12/21 [History] Albuterol/Ipratropium [Combivent Respimat] 2 puff INH Q4HRRT PRN #1 inhaler 10/14/21 [Rx] dexAMETHasone [Dexamethasone] 6 mg PO DAILY #9 tablet 10/14/21 [Rx] Oxygen Therapy Mode: Nasal Cannula Oxygen Flow Rate (L/min): 3 (increase to 5 with activity) Maintain SpO2% greater than: 90 Patient Handouts: Hypoxia, Ipratropium; Albuterol Inhalation [place] (Combivent Respimat), COVID-19 Frequently Asked Questions, 10 Things You Can Do to Manage Your COVID-19 Symptoms at Home - [facility] (04/22/2021), COVID-19: How to Protect Yourself and Others - [facility], Dexamethasone tablets Referrals: Helena Gallo NP [Ordering Only Provider] - 10/24/21 2:15 pm (Please arrive 15 minutes early with your ID and wearing a face covering.) - Discharge Summary/Plan Comment DC Time >30 min.: No Total # of Minutes for Discharge Time: 25 - Patient Data Vitals - Most Recent: Last Vital Signs Temp 96.9 F 10/14/21 11:58 Pulse 69 10/14/21 11:58 Resp 18 10/14/21 11:58 BP 149/84 H 10/14/21 08:19 Pulse Ox 90 L 10/14/21 11:58 Weight - Most Recent: 107.774 kg I&O - Last 24 hours: Intake & Output 10/13/21 10/14/21 10/14/21 22:59 06:59 14:59 Intake Total 1800 Balance 1800 Lab Results - Last 24 hrs: Laboratory Results - last 24 hr 10/14/21 10/14/21 Range/Units 06:17 06:17 WBC 8.14 (4.0-11.0) K/uL RBC 4.71 (4.50-5.90) M/uL Hgb 14.3 (13.0-17.0) g/dL Hct 42.3 (38.0-50.0) % MCV 89.8 (80.0-98.0) fL MCH 30.4 (27.0-32.0) pg MCHC 33.8 (31.0-37.0) g/dL RDW Std Deviation 45.1 (28.0-62.0) fl RDW Coeff of [place] 14 (11.0-15.0) % Plt Count 343 (150-400) K/uL MPV 10.20 (7.40-12.00) fL Neut % (Auto) 79.8 (48.0-80.0) % Lymph % (Auto) 11.4 L (16.0-40.0) % [place] % (Auto) 8.6 (0.0-15.0) % Eos % (Auto) 0.1 (0.0-7.0) % Baso % (Auto) 0.1 (0.0-1.5) % Neut # (Auto) 6.5 H (1.4-5.7) K/uL Lymph # (Auto) 0.9 (0.6-2.4) K/uL [place] # (Auto) 0.7 (0.0-0.8) K/uL Eos # (Auto) 0.0 (0.0-0.7) K/uL Baso # (Auto) 0.0 (0.0-0.1) K/uL Nucleated RBC % 0.0 /100WBC Nucleated RBCs # 0 K/uL Sodium 141 (136-148) mmol/L Potassium 4.1 (3.5-5.1) mmol/L Chloride 106 (98-107) mmol/L Carbon Dioxide 27.3 (21.0-32.0) mmol/L BUN 23 H (7.0-18.0) mg/dL Creatinine 0.9 (0.8-1.3) mg/dL Est Cr Clr Drug Dosing 102.56 mL/min Estimated GFR (MDRD) > 60.0 ml/min Glucose 124 H (74-106) mg/dL Calcium 8.3 L (8.5-10.1) mg/dL Total Bilirubin 0.7 (0.2-1.0) mg/dL AST 91 H (15-37) IU/L ALT 197 H (14-63) IU/L Alkaline Phosphatase 101 (46-116) U/L Total Protein 6.2 L (6.4-8.2) g/dL Albumin 2.8 L (3.4-5.0) g/dL Globulin 3.4 (2.6-4.0) g/dL Albumin/Globulin Ratio 0.8 L (0.9-1.6) BRIANNA Results - Last 24 hrs: Microbiology 10/11/21 19:41 Aerobic Blood Culture - Preliminary Blood - Venous - Lab Draw NO GROWTH AFTER 2 DAYS Anaerobic Blood Culture - Preliminary NO GROWTH AFTER 2 DAYS 10/11/21 19:36 Aerobic Blood Culture - Preliminary Blood - Venous NO GROWTH AFTER 2 DAYS Anaerobic Blood Culture - Preliminary NO GROWTH AFTER 2 DAYS Med Orders - Current: Current Medications Acetaminophen (Acetaminophen 325 Mg Tab) 650 mg PO Q4H PRN PRN Reason: Pain (Mild 1-3)/fever Albuterol/Ipratropium (Albuterol/Ipratropium 4 Gm Inhalation [place]) 0 gm INH Q4HRRT PRN PRN Reason: Dyspnea Aspirin (Aspirin 325 Mg Tab) 325 mg PO DAILY [facility] Last Admin: 10/14/21 08:12 Dose: 325 mg Documented by: Atorvastatin Calcium (Atorvastatin 40 Mg Tab) 80 mg PO WITHBREAKFAST [facility] Last Admin: 10/14/21 08:13 Dose: 80 mg Documented by: Baricitinib (Baricitinib 2 Mg Tab) 4 mg PO DAILY [facility] Last Admin: 10/14/21 08:12 Dose: 4 mg Documented by: Benzonatate (Benzonatate 100 Mg Cap) 200 mg PO Q8H PRN PRN Reason: Cough Last Admin: 10/12/21 11:13 Dose: 200 mg Documented by: Dexamethasone (Dexamethasone 4 Mg Tab) 6 mg PO DAILY [facility] Last Admin: 10/14/21 08:11 Dose: 6 mg Documented by: Docusate Sodium (Docusate Sodium 100 Mg Cap) 100 mg PO BID PRN PRN Reason: Constipation Enoxaparin Sodium (Enoxaparin 40 Mg/0.4 Ml Syringe) 40 mg SUBCUT Q24H [facility] Last Admin: 10/14/21 08:13 Dose: 40 mg Documented by: Guaifenesin/Codeine Phosphate (Codeine/Guaifenesin 10-100 Mg/5 Ml Syrup 5 Ml Cup) 5 ml PO Q4H PRN PRN Reason: Cough HCTZ/Losartan Potassium (Hydrochlorothiazide/Losartan 12.5-50 Mg Tab) 1 tab PO WITHBREAKFAST [facility] Last Admin: 10/14/21 08:13 Dose: 1 tab Documented by: Remdesivir 100 mg/ Sodium (Chloride) 100 mls @ 100 mls/hr IV Q24H [facility] Stop: 10/15/21 20:59 Last Admin: 10/13/21 20:27 Dose: 100 mls/hr Documented by: Ondansetron HCl (Ondansetron 4 Mg/2 Ml Sdv) 4 mg IVPUSH Q4H PRN PRN Reason: Nausea Pantoprazole Sodium (Pantoprazole 40 Mg Tab.Cr) 40 mg PO ACBREAKFAST [facility] Last Admin: 10/14/21 06:50 Dose: 40 mg Documented by: Sodium Chloride (Sodium Chloride 0.9% 10 Ml Syringe) 10 ml FLUSH ASDIRECTED PRN PRN Reason: Keep Vein Open Sodium Chloride (Sodium Chloride 0.9% 2.5 Ml Syringe) 2.5 ml FLUSH ASDIRECTED PRN PRN Reason: Keep Vein Open Discontinued Medications Dexamethasone (Dexamethasone 10 Mg/Ml Sdv) 10 mg IVPUSH ONETIME ONE Stop: 10/11/21 20:33 Last Admin: 10/11/21 20:43 Dose: 10 mg Documented by: Remdesivir 200 mg/ Sodium (Chloride) 250 mls @ 250 mls/hr IV ONETIME ONE Stop: 10/11/21 20:26 Last Admin: 10/11/21 21:20 Dose: 250 mls/hr Documented by: Iopamidol (Iopamidol 755 Mg/Ml 500 Ml Multipack Bottle) 100 ml IVPUSH ONETIME ONE Stop: 10/11/21 20:48 Last Admin: 10/11/21 20:47 Dose: 100 ml Documented by: Sodium Chloride (Sodium Chloride 0.9% 10 Ml Syringe) 10 ml FLUSH ASDIRECTED PRN PRN Reason: Keep Vein Open Last Admin: 10/11/21 19:43 Dose: 10 ml Documented by: Sodium Chloride (Sodium Chloride 0.9% 2.5 Ml Syringe) 2.5 ml FLUSH ASDIRECTED PRN PRN Reason: Keep Vein Open Last Admin: 10/11/21 19:44 Dose: 2.5 ml Documented by:
[2021-10-14] MEDS ORDERED: REMDESIVIR 100 MG in Sodium Chloride 0.9% 100 ML IV SCH (15:00)
[2021-10-14 15:08] VITALS: BP 113/70
== END 2021-10-14 16:30 | disposition home or self-care (01) | DRG 177 ==
LOC: MW.ED 18:52 → MW.MS 20:33
PROVIDERS: ADMIT Internal Medicine; ATTEND Internal Medicine
PROC: XW033E5 Introduction of Remdesivir Anti-infective into Peripheral Vein, Percutaneous Approach, New Technology Group 5 (ICD-10-PCS; principal; 2021-10-11)
PROC: 3E0333Z Introduction of Anti-inflammatory into Peripheral Vein, Percutaneous Approach (ICD-10-PCS; 2021-10-11)
PROC: 3E0DX3Z Introduction of Anti-inflammatory into Mouth and Pharynx, External Approach (ICD-10-PCS; 2021-10-12)
PROC: XW0DXM6 Introduction of Baricitinib into Mouth and Pharynx, External Approach, New Technology Group 6 (ICD-10-PCS; 2021-10-12)
DX: U07.1 COVID-19 (principal); J12.82 Pneumonia due to coronavirus disease 2019; J96.01 Acute respiratory failure with hypoxia; E78.5 Hyperlipidemia, unspecified; E66.9 Obesity, unspecified; E78.00 Pure hypercholesterolemia, unspecified; I10 Essential (primary) hypertension; R74.01 Elevation of levels of liver transaminase levels; Z79.82 Long term (current) use of aspirin; Z79.899 Other long term (current) drug therapy; Z86.73 Personal history of transient ischemic attack (TIA), and cerebral infarction without residual deficits; Z87.891 Personal history of nicotine dependence; Z68.35 Body mass index [BMI] 35.0-35.9, adult
CPT/HCPCS: 0240U; 36415; 71045; 71045-26; 71275; 71275-26; 80053; 81003; 83605; 83880; 85025; 86140; 87040; 93005; 99285-25; A9270-GY; J1100; J1650; J7050; J8540; Q9967